=== PATIENT | male | born 1950 | race Caucasian/White ===

== ENCOUNTER 2016-08-11 11:08 | Day surgery (SDC) | payer OTHER ==
[2016-08-10 11:51] VITALS: BMI 21.2
[2016-08-11] MEDS ORDERED: HEPARIN NA (PORCINE) 5,000 UNITS/ML 1ML VIAL ONE ×2 (13:51→14:04)
[2016-08-11] MEDS ORDERED: PROPOFOL 20 ML ONE (13:56)
[2016-08-11] MEDS ORDERED: MIDAZOLAM HCL 2 MG/2 ML SINGLE DOSE VIAL ONE (13:57)
[2016-08-11] MEDS ORDERED: ceFAZolin SODIUM 1 GM VIAL ONE (14:17)
[2016-08-11] MEDS ORDERED: ceFAZolin SODIUM 1 GM VIAL IVPB ONE (14:21)
[2016-08-11] MEDS ORDERED: morphine CARPU-JECT 2 MG/1 ML DISP.SYRIN IVPUSH PRN (14:50)
[2016-08-11] MEDS ORDERED: ONDANSETRON 4 MG/2 ML VIAL IVPUSH PRN (14:50)
[2016-08-11] MEDS ORDERED: oxyCODONE HCL 5 MG TABLET PO PRN (14:50)
--- NOTE | 2016-08-11 14:52 | HP ---
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 Valve is Bovine so only on ASA) Gastrointestinal: Yes: Other (HX OF GI BLEED FRO DUODENAL RECURRENT ARTERY) Renal/: Yes: Renal Inusuff, Other (Copy of the renal bx report from 02/11/14 which showed Moderately advanced Chronic Sclerosing Glomerulonephropathy with mild IgA nephropathy, Severe arterial and arteriolar Sclerosis, and Tubulo- Interstitial scarring.) Heme/Onc: Yes: Anemia, Thrombocytopenia ENT: Yes: Other - Past Surgical History Past Surgical History: Yes: Appendectomy, AV Fistula/Graft, Colonoscopy, Upper Endoscopy - Smoking History Smoking history: Former smoker Have you smoked in the past 12 months: No Aproximately how many cigarettes per day: 0 If you are a former smoker, when did you quit?: 40yrs ago light smoker - Alcohol/Substance Use Hx Alcohol Use: No History of Substance Use: reports: None - Social History ADL: Family Assistance History of Recent Travel: No Home Medications - Allergies Allergies/Adverse Reactions: Allergies Allergy/AdvReac Type Severity Reaction Status Date / Time ibuprofen Allergy Rash Verified 08/11/16 12:48 - Home Medications Home Medications: Ambulatory Orders Aspirin [ASA -] 81 mg PO DAILY 02/06/16 Cholecalciferol (Vitamin D3) [Vitamin D3] 3,000 unit PO HS 02/06/16 Cyanocobalamin [Vitamin B12 -] 500 mg PO HS 02/06/16 Divalproex [Depakote -] 250 mg PO DAILY 02/06/16 Docusate Sodium [Colace -] 100 mg PO DAILY 02/06/16 Doxazosin Mesylate 4 mg PO HS 02/06/16 Escitalopram Oxalate [Lexapro -] 5 mg PO HS 02/06/16 Gabapentin 100 mg PO HS 02/06/16 Levothyroxine [Synthroid -] 25 mcg PO DAILY 02/06/16 Oxybutynin Chloride [Ditropan Xl] 10 mg PO HS 02/06/16 Pantoprazole Sodium [Protonix] 40 mg PO BID 02/06/16 Sevelamer Carbonate [Renvela -] 800 mg PO BID 02/06/16 Solifenacin Succinate [Vesicare -] 5 mg PO HS 02/06/16 Vitamin B Complex 1 each PO HS 02/06/16 Family Disease History - Family Disease History Family Disease History: Diabetes: Mother, Brother (HTN), Other: Brother Physical Examination Vital Signs: Vital Signs Temperature 97.3 F L 08/11/16 12:45 Pulse Rate 50 L 08/11/16 12:45 Respiratory Rate 20 08/11/16 12:45 Blood Pressure 108/52 08/11/16 12:45 O2 Sat by Pulse Oximetry (%) 98 08/11/16 12:38 Constitutional: Yes: Well Nourished Eyes: Yes: WNL HENT: Yes: WNL Neck: Yes: WNL Cardiovascular: Yes: WNL Respiratory: Yes: WNL Gastrointestinal: Yes: WNL Labs: CBC, BMP 08/11/16 11:15 Assessment/Plan Stenosis left avf 1. For venoplasty today.
[2016-08-11] MEDS ORDERED: SODIUM CHLORIDE 1,000 ML IV SCH (15:00)
[2016-08-11 16:22] VITALS: TEMP 98.5
[2016-08-11 17:29] VITALS: BP 102/68; PULSE 48
--- NOTE | 2016-08-12 14:42 | OP ---
DATE OF OPERATION: 08/11/2016 PREOPERATIVE DIAGNOSIS: Stenosis, left arteriovenous fistula. POSTOPERATIVE DIAGNOSIS: Stenosis, left arteriovenous fistula. PROCEDURE: Venogram, venoplasty, left arteriovenous fistula. SURGEON: Cain Maldonado DO ANESTHESIA: Fractional. BLOOD LOSS: 5 mL. The patient is a 65-year-old male who has a stenosis in his left AV fistula on preoperative ultrasound. He had low volume flows on his ultrasound report and does need to have a venogram. Patient came in through ambulatory surgery. The patient was consented for the procedure, understanding all risks, benefits, alternatives. He was then taken to the operating room. Once in the operating room, he was placed on the operating table in supine manner and the area of the left arm was prepped and draped in a sterile surgical manner. We then went ahead and injected 5 mL of lidocaine 1% at the proximal AV fistula. We then took our micropuncture needle and punctured the proximal AV fistula and our micropuncture wire was inserted and our micropuncture sheath was inserted and an additional short 6-[place] sheath was inserted. We then shot a venogram of the left AV fistula via hand injection, showing that the mid AV fistula had probably a 95% stenosis for about 3 cm. We then went ahead and placed a 0.035 floppy guidewire across our stenosis. We then used an 8 x 6 balloon and performed venoplasty of the area. Completion venogram showed that the vein was now patent, there was no recoil and there was good thrill in our AV fistula. At this point, using a 4-0 Biosyn, we placed a [id number] stitch around our sheath and the sheath was pulled. The area was wet and dried and Dermabond was placed. Patient tolerated the procedure, no complication. Patient transferred back in stable condition. CAIN MALDONADO DO BOILER SHOP MECHANIC/[id number]
== END 2016-08-11 17:51 | disposition home or self-care (01) ==
LOC: JASU-SURG 11:08
PROVIDERS: ATTEND Surgery Vascular Surgery
PROC: B51WYZA Fluoroscopy of Dialysis Shunt/Fistula using Other Contrast, Guidance (ICD-10-PCS; 2016-08-11)
PROC: 057Y3ZZ Dilation of Upper Vein, Percutaneous Approach (ICD-10-PCS; principal; 2016-08-11 13:00)
DX: T82.858A Stenosis of other vascular prosthetic devices, implants and grafts, initial encounter (principal)
CPT/HCPCS: 36415; 76000-TC; 84132; 94760; J1644

== ENCOUNTER 2017-02-02 10:26 | Day surgery (SDC) | payer OTHER ==
[2017-02-01 11:58] VITALS: BMI 24.5
[2017-02-02] MEDS ORDERED: HEPARIN NA (PORCINE) 5,000 UNITS/ML 1ML VIAL ONE (12:20)
[2017-02-02] MEDS ORDERED: LIDOCAINE HCL 1%, 10 MG/ML (20ML VIAL) ONE (12:20)
[2017-02-02] MEDS ORDERED: MIDAZOLAM HCL 2 MG/2 ML SINGLE DOSE VIAL ONE ×2 (12:40→12:51)
[2017-02-02] MEDS ORDERED: ceFAZolin SODIUM 1 GM VIAL IVPB ONE (12:49)
[2017-02-02] MEDS ORDERED: ceFAZolin SODIUM 1 GM VIAL ONE (12:49)
[2017-02-02] MEDS ORDERED: LIDOCAINE HCL 1%, 10 MG/ML (20ML VIAL) IJ ONE (12:59)
--- NOTE | 2017-02-02 13:41 | OP ---
Operative Note - Note: Operative Date: 02/02/17 Pre-Operative Diagnosis: Stenosis left avf Operation: venogram, venoplasty left avf Findings: stenosis in body of avf -- 80% Post-Operative Diagnosis: Same as Pre-op Surgeon: Cain Garcia Anesthesia: Fractional Estimated Blood Loss (mls): 20 Operative Report Dictated: Yes
--- NOTE | 2017-02-02 13:41 | HP ---
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 Valve is Bovine so only on ASA) Gastrointestinal: Yes: Other (HX OF GI BLEED FRO DUODENAL RECURRENT ARTERY) Renal/: Yes: Renal Inusuff, Other (Copy of the renal bx report from 02/11/14 which showed Moderately advanced Chronic Sclerosing Glomerulonephropathy with mild IgA nephropathy, Severe arterial and arteriolar Sclerosis, and Tubulo- Interstitial scarring.) Heme/Onc: Yes: Anemia, Thrombocytopenia ENT: Yes: Other - Past Surgical History Past Surgical History: Yes: Appendectomy, AV Fistula/Graft, Colonoscopy, Upper Endoscopy - Smoking History Smoking history: Former smoker Have you smoked in the past 12 months: No Aproximately how many cigarettes per day: 0 If you are a former smoker, when did you quit?: 40yrs ago light smoker - Alcohol/Substance Use Hx Alcohol Use: No History of Substance Use: reports: None - Social History ADL: Family Assistance History of Recent Travel: No Home Medications - Allergies Allergies/Adverse Reactions: Allergies Allergy/AdvReac Type Severity Reaction Status Date / Time No Known Drug Allergies Allergy Verified 02/02/17 11:58 - Home Medications Home Medications: Ambulatory Orders Aspirin [ASA -] 81 mg PO BID 02/06/16 Cholecalciferol (Vitamin D3) [Vitamin D3] 2,000 unit PO HS 02/06/16 Cyanocobalamin [Vitamin B12 -] 500 mg PO HS 02/06/16 Divalproex [Depakote -] 250 mg PO DAILY 02/06/16 Docusate Sodium [Colace -] 100 mg PO BID 02/06/16 Doxazosin Mesylate 4 mg PO HS 02/06/16 Escitalopram Oxalate [Lexapro -] 5 mg PO HS 02/06/16 Gabapentin 100 mg PO HS 02/06/16 Levothyroxine [Synthroid -] 25 mcg PO DAILY 02/06/16 Oxybutynin Chloride [Ditropan Xl] 10 mg PO HS 02/06/16 Pantoprazole Sodium [Protonix] 40 mg PO DAILY 02/06/16 Sevelamer Carbonate [Renvela -] 800 mg PO BIDAC 02/06/16 Vitamin B Complex 1 each PO HS 02/06/16 Calcium Acetate [Phoslo -] 667 mg PO DAILY 02/02/17 Finasteride [Proscar -] 5 mg PO DAILY 02/02/17 Risperidone 0.25 mg PO DAILY 02/02/17 Family Disease History - Family Disease History Family Disease History: Diabetes: Mother, Brother (HTN), Other: Brother Physical Examination Vital Signs: Vital Signs Temperature 97.7 F 02/02/17 11:12 Pulse Rate 46 L 02/02/17 11:12 Respiratory Rate 18 02/02/17 11:12 Blood Pressure 109/65 02/02/17 11:12 O2 Sat by Pulse Oximetry (%) 98 02/02/17 11:14 Constitutional: Yes: Well Nourished Eyes: Yes: WNL HENT: Yes: WNL Neck: Yes: WNL Cardiovascular: Yes: WNL Respiratory: Yes: WNL Gastrointestinal: Yes: WNL Musculoskeletal: Yes: WNL Extremities: Yes: WNL Edema: No Labs: CBC, BMP 02/02/17 11:15 Assessment/Plan Stenosis left avf 1. For venogram , venoplasty today
[2017-02-02 14:59] VITALS: TEMP 97.7
[2017-02-02 17:10] VITALS: BP 109/68; PULSE 48
--- NOTE | 2017-02-03 08:09 | OP ---
DATE OF OPERATION: 02/02/2017 SURGEON: Cain Maldonado DO ANESTHESIA: Fractional. BLOOD LOSS: 20 mL. PREOPERATIVE DIAGNOSIS: Stenosis, left arteriovenous fistula. POSTOPERATIVE DIAGNOSIS: Stenosis, left arteriovenous fistula. PROCEDURE: Venogram, venoplasty, left arteriovenous fistula. The patient is a 66-year-old male that came in from dialysis with issues with blood flow in the left AV fistula. It was decided that he would need a venogram. Patient was consented for the procedure, understanding all risks, benefits, and alternatives, and was then taken to the operating room. Once in the operating room, he was laid on the operating table in the supine manner and the area of the left arm was prepped and draped in sterile surgical manner. Under ultrasound guidance, we visualized the cephalic vein at the antecubital space and 2 mL of lidocaine 1% was injected there. We then took our micropuncture needle and punctured the cephalic vein. Micropuncture wire was inserted. Micropuncture sheath was inserted and a short 6-[place] sheath was inserted. IV heparin 3000 units was administered to the patient. We then placed a 0.045 floppy guidewire down through the vein and through the anastomosis and a [place] catheter was placed. We then shot a venogram via hand injection showing that the proximal cephalic vein above the anastomosis was severely stenotic, about 80%, through the body of the fistula. We then went ahead and placed a 6 x 8 balloon from the anastomosis up and performed venoplasty of the vein. We then followed that up with a 9 x 8 balloon and performed venoplasty of the vein. Completion venogram now showed that the vein was patent. There was a good thrill in our AV fistula. There was a good bruit. At this point, we used a 4-0 Biosyn stitch and a figure-of-8 stitch was placed around our sheath and the sheath was pulled. The area was wet and dried and Dermabond was placed. Patient tolerated the procedure with no complication. Patient transferred to PACU in stable condition. CAIN MALDONADO DO RESPIRATORY EQUIPMENT ASSISTANT/[id number]
--- NOTE | 2017-02-07 10:18 | OP ---
DATE OF OPERATION: 02/02/2017 PREOPERATIVE DIAGNOSIS: Stenosis, left arteriovenous fistula. POSTOPERATIVE DIAGNOSIS: Stenosis, left arteriovenous fistula. PROCEDURE: Venogram, venoplasty, left arteriovenous fistula. SURGEON: Cain Maldonado DO ANESTHESIA: Fractional. BLOOD LOSS: 5 mL. DESCRIPTION OF PROCEDURE: The patient is a 66-year-old who comes in from the dialysis unit with poor flow. It was decided that he would need a venogram. Patient was consented for the procedure, understanding all risks, benefits, and alternatives. He was then taken to the operating room. Once in the operating room, he was laid on the operating table in supine manner, and the area of the left arm was prepped and draped in sterile surgical manner. We then went ahead and punctured the left cephalic vein at the antecubital fossa under ultrasound guidance. Under ultrasound guidance we visualized the cephalic vein. Next, 10 mL of 1% was injected in the area. We then took our Micropuncture needle, punctured the vein. Micropuncture wire was inserted and traditional short 6-[place] sheath was inserted. We then placed a 0.035 floppy guidewire down through the anastomosis, and we then went ahead and used an 8 x 8 [place] balloon and performed venoplasty of the entire AV fistula. Completion venogram now showed that the fistula was patent. There was a good thrill in the aVF. At this point we took a 4-0 Biosyn stitch, and a [id number] stitch was placed around the sheath and the sheath was pulled. Area was wet and dried and Dermabond was placed. The patient tolerated the procedure well with no complications. Patient transferred to PACU in stable condition. CAIN MALDONADO DO EDUCATION AND TRAINING COORDINATOR/[id number]
== END 2017-02-02 17:11 | disposition home or self-care (01) ==
LOC: JASU-SURG 10:26 → JOR 10:26 → JASU-SURG 17:11
PROVIDERS: ATTEND Surgery Vascular Surgery
PROC: 057F3ZZ Dilation of Left Cephalic Vein, Percutaneous Approach (ICD-10-PCS; principal; 2017-02-02 11:30)
DX: T82.858A Stenosis of other vascular prosthetic devices, implants and grafts, initial encounter (principal); I12.0 Hypertensive chronic kidney disease with stage 5 chronic kidney disease or end stage renal disease; N18.6 End stage renal disease; Z99.2 Dependence on renal dialysis
CPT/HCPCS: 36415; 76000-TC; 84132; 94760; J1644

== ENCOUNTER 2017-07-07 06:38 | Day surgery (SDC) | payer OTHER ==
[2017-07-06 12:47] VITALS: BMI 23.8
[2017-07-07] MEDS ORDERED: HEPARIN NA (PORCINE) 5,000 UNITS/ML 1ML VIAL ONE (08:16)
[2017-07-07] MEDS ORDERED: LIDOCAINE HCL 1%, 10 MG/ML (20ML VIAL) ONE (08:16)
[2017-07-07] MEDS ORDERED: MIDAZOLAM HCL 2 MG/2 ML SINGLE DOSE VIAL ONE (09:12)
[2017-07-07] MEDS ORDERED: PROPOFOL 20 ML ONE ×2 (09:27)
[2017-07-07] MEDS ORDERED: LIDOCAINE HCL/PF 2% SDV 5ML VIAL ONE (09:27)
[2017-07-07] MEDS ORDERED: IOHEXOL 300 MG/ML INFUS..BTL IV ONE (09:47)
[2017-07-07] MEDS ORDERED: LIDOCAINE HCL 1%, 10 MG/ML (20ML VIAL) PNB ONE (09:49)
--- NOTE | 2017-07-07 09:51 | HP ---
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 Valve is Bovine so only on ASA) Gastrointestinal: Yes: Other (HX OF GI BLEED FRO DUODENAL RECURRENT ARTERY) Renal/: Yes: Renal Inusuff, Other (Copy of the renal bx report from 02/11/14 which showed Moderately advanced Chronic Sclerosing Glomerulonephropathy with mild IgA nephropathy, Severe arterial and arteriolar Sclerosis, and Tubulo- Interstitial scarring.) Heme/Onc: Yes: Anemia, Thrombocytopenia ENT: Yes: Other - Past Surgical History Past Surgical History: Yes: Appendectomy, AV Fistula/Graft, Colonoscopy, Upper Endoscopy - Smoking History Smoking history: Former smoker Have you smoked in the past 12 months: No Aproximately how many cigarettes per day: 0 If you are a former smoker, when did you quit?: 40yrs ago light smoker - Alcohol/Substance Use Hx Alcohol Use: No History of Substance Use: reports: None - Social History ADL: Family Assistance History of Recent Travel: No Home Medications - Allergies Allergies/Adverse Reactions: Allergies Allergy/AdvReac Type Severity Reaction Status Date / Time No Known Drug Allergies Allergy Verified 07/07/17 07:29 - Home Medications Home Medications: Ambulatory Orders Aspirin [ASA -] 81 mg PO BID 02/06/16 Cholecalciferol (Vitamin D3) [Vitamin D3] 2,000 unit PO HS 02/06/16 Cyanocobalamin [Vitamin B12 -] 500 mg PO HS 02/06/16 Divalproex [Depakote -] 250 mg PO DAILY 02/06/16 Docusate Sodium [Colace -] 100 mg PO BID 02/06/16 Doxazosin Mesylate 4 mg PO DAILY 02/06/16 Escitalopram Oxalate [Lexapro -] 5 mg PO DAILY 02/06/16 Gabapentin 100 mg PO HS 02/06/16 Levothyroxine [Synthroid -] 25 mcg PO DAILY 02/06/16 Oxybutynin Chloride [Ditropan Xl] 20 mg PO DAILY 02/06/16 Pantoprazole Sodium [Protonix] 40 mg PO DAILY 02/06/16 Sevelamer Carbonate [Renvela -] 800 mg PO BIDAC 02/06/16 Calcium Acetate [Phoslo -] 667 mg PO DAILY 02/02/17 Finasteride [Proscar -] 5 mg PO DAILY 02/02/17 Risperidone 0.25 mg PO DAILY 02/02/17 Linaclotide [Linzess] 72 mcg PO DAILY 07/06/17 Vitamin B Complex 1 each PO DAILY 07/06/17 Family Disease History - Family Disease History Family Disease History: Diabetes: Mother, Brother (HTN), Other: Brother Review of Systems - Review of Systems Constitutional: reports: No Symptoms Eyes: reports: No Symptoms HENT: reports: No Symptoms Neck: reports: No Symptoms Cardiovascular: reports: No Symptoms Respiratory: reports: No Symptoms Gastrointestinal: reports: No Symptoms Genitourinary: reports: No Symptoms Integumentary: reports: No Symptoms Neurological: reports: No Symptoms Endocrine: reports: No Symptoms Hematology/Lymphatic: reports: No Symptoms Psychiatric: reports: No Symptoms Physical Examination Vital Signs: Vital Signs Temperature 97.6 F 07/07/17 07:31 Pulse Rate 48 L 07/07/17 07:31 Respiratory Rate 16 07/07/17 07:31 Blood Pressure 118/53 07/07/17 07:31 O2 Sat by Pulse Oximetry (%) 98 07/07/17 07:30 Constitutional: Yes: Well Nourished, No Distress, Calm Eyes: Yes: WNL, Conjunctiva Clear, EOM Intact HENT: Yes: WNL, Atraumatic, Normocephalic Neck: Yes: WNL, Supple, Trachea Midline Cardiovascular: Yes: WNL, Regular Rate and Rhythm Respiratory: Yes: WNL, Regular, CTA Bilaterally Gastrointestinal: Yes: WNL, Normal Bowel Sounds Musculoskeletal: Yes: WNL Extremities: Yes: WNL Edema: No Integumentary: Yes: WNL Neurological: Yes: WNL, Alert, Oriented ...Motor Strength: WNL Psychiatric: Yes: WNL Labs: CBC, BMP 07/07/17 06:45 Problem List - Problems (1) AV fistula occlusion Code(s): T82.898A - OTH COMPLICATION OF VASCULAR PROSTH DEV/GRFT, INIT (2) CKD (chronic kidney disease) Code(s): N18.9 - CHRONIC KIDNEY DISEASE, UNSPECIFIED Assessment/Plan Left avf stenosis 1. for venogram , venoplasty today
--- NOTE | 2017-07-07 09:53 | OP ---
Operative Note - Note: Operative Date: 07/07/17 Pre-Operative Diagnosis: left avf stenosis Operation: Venogram, DCB venoplasty of left avf Findings: 90% stenosis of left avf -- body Post-Operative Diagnosis: Same as Pre-op Surgeon: Cain Garcia Anesthesia: Fractional Estimated Blood Loss (mls): 10 Operative Report Dictated: Yes
--- NOTE | 2017-07-07 10:31 | OP ---
DATE OF OPERATION: 07/07/2017 PREOPERATIVE DIAGNOSIS: Stenosis, left arteriovenous fistula. POSTOPERATIVE DIAGNOSIS: Stenosis, left arteriovenous fistula. PROCEDURE: Venogram, drug-coated balloon venoplasty of left arteriorvenous fistula. SURGEON: Cain Maldonado MD ANESTHESIA: Fractional. BLOOD LOSS: 10 mL. INDICATIONS: The patient is a 62-year-old male who had an ultrasound done in our office yesterday showing that his volume had fallen all the way down to 200. He had a 90% stenosis in the body of his AV fistula, and he was going to dialysis the next day. It was thought that in the morning, we should do a venoplasty, so, he can get adequate dialysis. Patient came into ambulatory surgery. Patient was consented for the procedure understanding all risks, benefits, and alternatives, and then taken to the operating room. DESCRIPTION OF PROCEDURE: Once in the operating room, he was placed on the operating table in the supine manner, and the area of the left arm was prepped and draped in a sterile surgical manner. Under ultrasound guidance we visualized the AV fistula at the antecubital fossa, and we were able to inject 10 mL of lidocaine 1% in that area. We then used our micropuncture needle and punctured the AV fistula. Micropuncture wire was inserted, micropuncture sheath was inserted, and a traditional short 6-[place] sheath was inserted. Then, 3000 units of IV heparin were administered to the patient. We then placed a 0.035-floppy guidewire down to the anastomosis and across it. We then shot a venogram showing that the body of the AV fistula had a 90% stenosis. At this point, we placed a 7 x 6 drug-coated balloon down to the anastomosis and performed a venoplasty using the drug-coated [place]on[place] balloon in the body of the AV fistula. We kept the balloon open for 3 minutes, so that the medication could get into the wall of the vein. We then went ahead and used a 9 x 8 [place] balloon and performed venoplasty of the entire AV fistula, again dilating up the vein with completion venogram now shot through the sheath showing that the vein was patent, there was good thrill in the AV fistula. At this point, we used a 4-0 Biosyn stitch, and a figure-of-8 stitch was placed around the sheath, and the sheath was pulled. Area was wet and dried, and Dermabond was placed. The patient tolerated the procedure with no complications. Patient transferred to PACU in stable condition. CAIN MALDONADO DO NP/[id number]
[2017-07-07] MEDS ORDERED: ONDANSETRON 4 MG/2 ML VIAL IVPUSH PRN (10:48)
[2017-07-07 11:12] VITALS: TEMP 97.5
[2017-07-07 12:32] VITALS: BP 134/56; PULSE 50
--- NOTE | 2017-07-08 15:16 | EKG ---
Test Reason : Blood Pressure : / mmHG Vent. Rate : 045 BPM Atrial Rate : 045 BPM P-R Int : 158 ms QRS Dur : 100 ms QT Int : 528 ms P-R-T Axes : -19 047 058 degrees QTc Int : 456 ms MARKED SINUS BRADYCARDIA NONSPECIFIC T WAVE ABNORMALITY ABNORMAL ECG WHEN COMPARED WITH ECG OF 22-APR-2016 00:18, T WAVE INVERSION NOW EVIDENT IN ANTERIOR LEADS Confirmed by FRANCISCO MONTALVO MD ([id number]) on 07/08/2017 3:16:13 PM Referred By: PATRICIA MALDONADO Confirmed By:FRANCISCO MONTALVO MD
== END 2017-07-07 12:00 | disposition home or self-care (01) ==
LOC: JASU-SURG 06:38
PROVIDERS: ATTEND Surgery Vascular Surgery
PROC: 057Y3DZ Dilation of Upper Vein with Intraluminal Device, Percutaneous Approach (ICD-10-PCS; 2017-07-07)
PROC: 057F3ZZ Dilation of Left Cephalic Vein, Percutaneous Approach (ICD-10-PCS; 2017-07-07)
PROC: 057Y3ZZ Dilation of Upper Vein, Percutaneous Approach (ICD-10-PCS; principal; 2017-07-07 09:00)
DX: T82.858A Stenosis of other vascular prosthetic devices, implants and grafts, initial encounter (principal); I12.0 Hypertensive chronic kidney disease with stage 5 chronic kidney disease or end stage renal disease; N18.6 End stage renal disease; E78.5 Hyperlipidemia, unspecified; Z86.73 Personal history of transient ischemic attack (TIA), and cerebral infarction without residual deficits; Z87.891 Personal history of nicotine dependence
CPT/HCPCS: 36415; 76000-TC; 84132; 93005; 93010; 94760; J1644

== ENCOUNTER 2018-12-15 08:33 | Day surgery (SDC) | payer OTHER, MEDICARE ==
[2018-12-14 15:46] VITALS: BMI 21.2
[2018-12-15] MEDS ORDERED: LIDOCAINE HCL/PF 2% SDV 5ML VIAL ONE (09:51)
[2018-12-15] MEDS ORDERED: ceFAZolin SODIUM 1 GM VIAL ONE (09:51)
[2018-12-15] MEDS ORDERED: DEXAMETHASONE SOD PHOSPHATE 4 MG/1 ML VIAL ONE (09:51)
[2018-12-15] MEDS ORDERED: SODIUM CHLORIDE 0.9% P/F 10 ML VIAL IJ ONE (09:51)
[2018-12-15] MEDS ORDERED: MIDAZOLAM HCL 2 MG/2 ML SINGLE DOSE VIAL ONE (09:51)
[2018-12-15] MEDS ORDERED: ceFAZolin SODIUM 1 GM VIAL IVPB ONE (10:40)
[2018-12-15] MEDS ORDERED: LIDOCAINE HCL 1%, 10 MG/ML (50 mL VIAL) IJ ONE ×2 (10:49)
[2018-12-15] MEDS ORDERED: oxyCODONE HCL 5 MG TABLET PO PRN (11:05)
[2018-12-15] MEDS ORDERED: ONDANSETRON 4 MG/2 ML VIAL IVPUSH PRN (11:05)
--- NOTE | 2018-12-15 11:06 | HP ---
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 Valve is Bovine so only on ASA) Gastrointestinal: Yes: Other (HX OF GI BLEED FRO DUODENAL RECURRENT ARTERY) Renal/: Yes: Renal Inusuff, Other (Copy of the renal bx report from 02/11/14 which showed Moderately advanced Chronic Sclerosing Glomerulonephropathy with mild IgA nephropathy, Severe arterial and arteriolar Sclerosis, and Tubulo- Interstitial scarring.) Heme/Onc: Yes: Anemia, Thrombocytopenia ENT: Yes: Other - Past Surgical History Past Surgical History: Yes: Appendectomy, AV Fistula/Graft, Colonoscopy, Upper Endoscopy - Smoking History Smoking history: Former smoker Have you smoked in the past 12 months: No Aproximately how many cigarettes per day: 0 If you are a former smoker, when did you quit?: 40yrs ago light smoker - Alcohol/Substance Use Hx Alcohol Use: No History of Substance Use: reports: None - Social History ADL: Family Assistance History of Recent Travel: No Home Medications - Allergies Allergies/Adverse Reactions: Allergies Allergy/AdvReac Type Severity Reaction Status Date / Time No Known Allergies Allergy Verified 12/15/18 09:18 - Home Medications Home Medications: Ambulatory Orders Escitalopram Oxalate [Lexapro -] 10 mg PO DAILY 02/06/16 Finasteride [Proscar -] 5 mg PO DAILY 02/02/17 Linaclotide [Linzess] 72 mcg PO DAILY 07/06/17 Vitamin B Complex 1 each PO DAILY 07/06/17 Cyanocobalamin [Vitamin B12 -] 500 mcg PO DAILY 01/31/18 Sevelamer HCl [Renagel] 800 mg PO TID 02/02/18 Aspirin [Aspirin EC] 81 mg PO DAILY 12/15/18 Cholecalciferol (Vitamin D3) [Vitamin D3 -] 1,000 unit PO DAILY 12/15/18 Diazepam [Valium] 2 mg PO HS 12/15/18 Divalproex [Depakote -] 250 mg PO DAILY 12/15/18 Docusate Sodium [Colace -] 100 mg PO BID 12/15/18 Nifedipine [Procardia Xl] 60 mg PO ASDIR 12/15/18 Pantoprazole Sodium [Protonix -] 40 mg PO DAILY 12/15/18 Pramipexole Di-HCl [Mirapex] 0.25 mg PO DAILY 12/15/18 Family Disease History - Family Disease History Family Disease History: Diabetes: Mother, Brother (HTN), Other: Brother Review of Systems - Review of Systems Constitutional: reports: No Symptoms Eyes: reports: No Symptoms HENT: reports: No Symptoms Neck: reports: No Symptoms Cardiovascular: reports: No Symptoms Respiratory: reports: No Symptoms Gastrointestinal: reports: No Symptoms Genitourinary: reports: No Symptoms Musculoskeletal: reports: No Symptoms Integumentary: reports: No Symptoms Neurological: reports: No Symptoms Endocrine: reports: No Symptoms Hematology/Lymphatic: reports: No Symptoms Psychiatric: reports: No Symptoms Physical Examination Vital Signs: Vital Signs Temperature 97.6 F 12/15/18 09:17 Pulse Rate 46 L 12/15/18 09:17 Respiratory Rate 18 12/15/18 09:17 Blood Pressure 135/56 L 12/15/18 09:17 O2 Sat by Pulse Oximetry (%) 99 12/15/18 09:17 Constitutional: Yes: Well Nourished, No Distress, Calm Eyes: Yes: WNL, Conjunctiva Clear, EOM Intact HENT: Yes: WNL, Atraumatic, Normocephalic Neck: Yes: WNL, Supple, Trachea Midline Cardiovascular: Yes: WNL, Regular Rate and Rhythm Respiratory: Yes: WNL, Regular, CTA Bilaterally Gastrointestinal: Yes: WNL, Normal Bowel Sounds Musculoskeletal: Yes: WNL Extremities: Yes: WNL Edema: No Peripheral Pulses WNL: Yes Integumentary: Yes: WNL Neurological: Yes: WNL, Alert, Oriented ...Motor Strength: WNL Psychiatric: Yes: WNL Labs: CBC, BMP 12/15/18 08:57 Problem List - Problems (1) AV fistula stenosis Assessment/Plan: for venogram today Code(s): T82.858A - STENOSIS OF OTHER VASCULAR PROSTH DEV/GRFT, INIT
--- NOTE | 2018-12-15 11:09 | OP ---
Operative Note - Note: Operative Date: 12/15/18 Pre-Operative Diagnosis: stenosis left avf Operation: venogram,venoplasty left avf Post-Operative Diagnosis: Same as Pre-op Surgeon: Cain Garcia Anesthesia: Fractional Estimated Blood Loss (mls): 20 Operative Report Dictated: Yes
[2018-12-15] MEDS ORDERED: LACTATED RINGERS SOLUTION 1,000 ML IV SCH (11:15)
--- NOTE | 2018-12-15 11:51 | OP ---
DATE OF OPERATION: 12/15/2018 PREOPERATIVE DIAGNOSIS: Stenosis left arteriovenous fistula. POSTOPERATIVE DIAGNOSIS: Stenosis left arteriovenous fistula. PROCEDURE: Venogram and venoplasty of left arteriovenous fistula. SURGEON: Cain Maldonado DO ANESTHESIA: Fractional. BLOOD LOSS: 30 mL. Patient is a 68-year-old male that has had a recent ultrasound showing stenosis of left AV fistula with a low volume flow. It was felt that he would need a venogram. Patient was consented for the procedure understanding all risks, benefits, and alternatives, was then taken to the operating room. Once in the operating room, was laid on the operating table in supine manner. The area of the left arm was prepped and draped in standard surgical manner. We then went ahead and under ultrasound guidance visualized the proximal cephalic vein below the elbow and 5 mL of lidocaine 1% was injected. We then, under ultrasound guidance, were able to use our micropuncture needle and puncture the cephalic vein. Micropuncture wire was inserted, micropuncture sheath was inserted, and short 6-Sinhala sheath was inserted. Intravenous heparin 5000 units was administered to the patient. We then placed a 0.035 floppy guidewire down to the anastomosis. We then placed an 8 x 8 Deuel balloon and performed venoplasty of the entire fistula from above the anastomosis to below the elbow. Once completed, we shot a completion venogram via hand injection showing that the vein was patent and was dilated. There was a good thrill in the AV fistula. At this point, we used a 4-0 Biosyn stitch in a [id number] stitch was placed around our sheath, and the sheath was pulled. The areas were then dried, and Dermabond was placed. Patient tolerated the procedure with no complications. Patient was transferred to PACU in stable condition. CAIN MALDONADO DO MANAGER ATHLETICS/[id number]
[2018-12-15 14:06] VITALS: BP 138/60; PULSE 52; TEMP 97.8
== END 2018-12-15 14:05 | disposition home or self-care (01) ==
LOC: JASU-SURG 08:33
PROVIDERS: ATTEND Surgery Vascular Surgery
PROC: 057F3DZ Dilation of Left Cephalic Vein with Intraluminal Device, Percutaneous Approach (ICD-10-PCS; principal; 2018-12-15 10:00)
DX: T82.858A Stenosis of other vascular prosthetic devices, implants and grafts, initial encounter (principal); I12.0 Hypertensive chronic kidney disease with stage 5 chronic kidney disease or end stage renal disease; N18.6 End stage renal disease; Z99.2 Dependence on renal dialysis
CPT/HCPCS: 36415; 76000-TC-FY; 84132; 94760

== ENCOUNTER 2019-02-01 06:35 | Inpatient (IN) | payer OTHER, MEDICARE ==
[2019-02-01 07:20] LABS: HEMATOCRIT 17.9 % (35.4-49); MCH 35.2 pg (25.7-33.7); MCHC 36.9 g/dl (32.0-35.9); MEAN CELL VOLUME 95.4 fl (80-96); MEAN PLT VOLUME 8.1 fl (7.5-11.1); PLATELET COUNT 105 K/MM3 (134-434); RBC 1.87 M/mm3 (4.00-5.60); RDW 14.4 % (11.9-15.9); WHITE BLOOD COUNT 3.2 K/mm3 (4.0-10.0)
[2019-02-01 07:33] LABS: HEMOGLOBIN 6.6 GM/dL (11.7-16.9)
[2019-02-01 11:06] VITALS: BMI 24.1
[2019-02-01] MEDS ORDERED: DEXTROSE 50%-WATER - 25 GM/50 ML VIAL IVPUSH ONE (11:23)
[2019-02-01] MEDS ORDERED: INSULIN (NOVOLOG) ASPART 100 UNITS/ML 10ML VIAL SQ ONE (11:24)
[2019-02-01] MEDS ORDERED: SODIUM POLYSTYRENE SULFONATE 15 GM/60 ML BOTTLE PO ONE (11:26)
[2019-02-01] MEDS ORDERED: ALBUTEROL SO4 0.083% IH SOL 2.5 MG/3 ML VIAL.NEB. NEB ONE ×4 (11:27→12:11)
[2019-02-01] MEDS ORDERED: CALCIUM GLUCONATE 10% - 1,000 MG/10 ML VIAL IVPB ONE (11:30)
[2019-02-01] MEDS ORDERED: SODIUM CHLORIDE 250 ML IV PRN (11:32)
[2019-02-01] MEDS ORDERED: SODIUM BICARBONATE 4.2% 5 MEQ/10 ML DISP.SYRIN IVPUSH ONE (11:35)
--- NOTE | 2019-02-01 11:50 | HP ---
Admitting History and Physical - Primary Care Physician PCP: Leobardo De La Garza I - Admission History of Present Illness: 68 yr old male HTN,HLD, Aortic valve replacement, parkinson disease and ESRD on HD came in because melanotic stools since tuesday, per daughter he has been having dark stools daily since tuesday , she took him to see PMD tuesday and who did blood work and told him to come to dr you for EGD, patient has been feeling dizzy as well since tuesday and was told he looks yellow, he also had a fall at home and has been feeling weak, his knees gave way and was caught by his daughter .last melanotic stool was yesterday evening per daughter no chest pain no dizziness , no sob , no palpitations patient gets HD T and tuesday at [facility] today lab show potssium of 10 and h/h 6.9 History Source: Patient, Family Member - Past Medical History 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 Valve is Bovine so only on ASA) Gastrointestinal: Yes: Other (HX OF GI BLEED FRO DUODENAL RECURRENT ARTERY) Renal/: Yes: Renal Inusuff, Other (Copy of the renal bx report from 02/11/14 which showed Moderately advanced Chronic Sclerosing Glomerulonephropathy with mild IgA nephropathy, Severe arterial and arteriolar Sclerosis, and Tubulo- Interstitial scarring.) Heme/Onc: Yes: Anemia, Thrombocytopenia ENT: Yes: Other - Past Surgical History Past Surgical History: Yes: Appendectomy, AV Fistula/Graft, Colonoscopy, Upper Endoscopy - Smoking History Smoking history: Former smoker Have you smoked in the past 12 months: No Aproximately how many cigarettes per day: 0 If you are a former smoker, when did you quit?: 40yrs ago light smoker - Alcohol/Substance Use Hx Alcohol Use: No History of Substance Use: reports: None - Social History ADL: Family Assistance History of Recent Travel: No Home Medications - Allergies Allergies/Adverse Reactions: Allergies Allergy/AdvReac Type Severity Reaction Status Date / Time No Known Allergies Allergy Verified 12/15/18 09:18 - Home Medications Home Medications: Ambulatory Orders Escitalopram Oxalate [Lexapro -] 10 mg PO DAILY 02/06/16 Finasteride [Proscar -] 5 mg PO DAILY 02/02/17 Linaclotide [Linzess] 72 mcg PO DAILY 07/06/17 Vitamin B Complex 1 each PO DAILY 07/06/17 Cyanocobalamin [Vitamin B12 -] 500 mcg PO DAILY 01/31/18 Sevelamer HCl [Renagel] 800 mg PO BID 02/02/18 Aspirin [Aspirin EC] 81 mg PO DAILY 12/15/18 Cholecalciferol (Vitamin D3) [Vitamin D3 -] 1,000 unit PO DAILY 12/15/18 Diazepam [Valium] 2 mg PO HS 12/15/18 Divalproex [Depakote -] 250 mg PO DAILY 12/15/18 Docusate Sodium [Colace -] 100 mg PO BID 12/15/18 Nifedipine [Procardia Xl] 60 mg PO ASDIR 12/15/18 Pantoprazole Sodium [Protonix -] 40 mg PO DAILY 12/15/18 Pramipexole Di-HCl [Mirapex] 0.25 mg PO DAILY 12/15/18 Family Disease History - Family Disease History Family Disease History: Diabetes: Mother, Brother (HTN), Other: Brother Review of Systems - Review of Systems Constitutional: reports: Weakness Physical Examination Vital Signs: Vital Signs Temperature 98.1 F 02/01/19 08:24 Pulse Rate 51 L 02/01/19 08:24 Respiratory Rate 20 02/01/19 08:24 Blood Pressure 125/51 L 02/01/19 08:24 O2 Sat by Pulse Oximetry (%) 100 02/01/19 08:24 Constitutional: Yes: Calm, Thin HENT: Yes: Other (midline chest scar) Cardiovascular: Yes: Regular Rate and Rhythm, S1, S2 Respiratory: Yes: CTA Bilaterally Gastrointestinal: Yes: Normal Bowel Sounds, Soft Extremities: Yes: Other (left arm av fistula) Edema: No Neurological: Yes: Alert, Oriented Labs: CBC, BMP 02/01/19 06:44 02/01/19 08:25 Imaging - Results EKG: Pending Problem List - Problems (1) GIB (gastrointestinal bleeding) Assessment/Plan: gi dr you on board iv PPI drip clear liquid diet per GI NPO tonight for EGD in AM 3 units PRBC today icu consulted cbc every 8 hrs no aspirin Code(s): K92.2 - GASTROINTESTINAL HEMORRHAGE, UNSPECIFIED (2) Weakness Assessment/Plan: related to anemia Code(s): R53.1 - WEAKNESS (3) Hyperkalemia Assessment/Plan: calcum,insulin,d50, sodium bicarbonate HD once telemetry bed is available stat ekg now cardiology consult repeat cmp now Code(s): E87.5 - HYPERKALEMIA (4) ESRD (end stage renal disease) Assessment/Plan: HD today once bed is available 3 units PRBC Code(s): N18.6 - END STAGE RENAL DISEASE
[2019-02-01] MEDS ORDERED: SODIUM BICARBONATE 8.4% 50 MEQ/50 ML VIAL IV ONE (12:02)
--- NOTE | 2019-02-01 12:29 | CON.GI ---
Consult Consult Specialty:: GI Referred by:: Dr De La Garza/ Jennifer Herrera md - History of Present Illness History of Present Illness: 68 yr old male HTN,HLD, Aortic valve replacement, parkinson disease and ESRD on HD came in because melanotic stools since tuesday, per daughter he has been having dark stools daily since tuesday , she took him to see PMD tuesday and who did blood work and told him to come to dr you for EGD, patient has been feeling dizzy as well since tuesday and was told he looks yellow, he also had a fall at home and has been feeling weak, his knees gave way and was caught by his daughter .last melanotic stool was yesterday evening per daughter no chest pain no dizziness , no sob , no palpitations patient gets HD T and t[facility] today lab show potssium of 10 and h/h 6.9 He was in the endoscopy suite this morning but had to be cancelled because of severe hyperkalemia and severe anemia. He had an endocopy 10/28/[address] Sandoval which revealed bleeding AVM/Dieulafoy's lesion s/p clipping. Since 2014 , he had multiple colonoscopy and EGD secondary to obscure Gi Bleeding. 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 Valve is Bovine so only on ASA) Gastrointestinal: Yes: Other (HX OF GI BLEED FRO DUODENAL RECURRENT ARTERY) Renal/: Yes: Renal Inusuff, Other (Copy of the renal bx report from 02/11/14 which showed Moderately advanced Chronic Sclerosing Glomerulonephropathy with mild IgA nephropathy, Severe arterial and arteriolar Sclerosis, and Tubulo- Interstitial scarring.) ENT: Yes: Other - Past Surgical History Past Surgical History: Yes: Appendectomy, AV Fistula/Graft, Colonoscopy, Upper Endoscopy - Alcohol/Substance Use Hx Alcohol Use: No History of Substance Use: reports: None - Smoking History Smoking history: Former smoker Have you smoked in the past 12 months: No Aproximately how many cigarettes per day: 0 If you are a former smoker, when did you quit?: 40yrs ago light smoker - Social History Usual Living Arrangement: With Spouse ADL: Family Assistance History of Recent Travel: No Home Medications - Allergies Allergies/Adverse Reactions: Allergies Allergy/AdvReac Type Severity Reaction Status Date / Time No Known Allergies Allergy Verified 12/15/18 09:18 - Home Medications Home Medications: Ambulatory Orders Escitalopram Oxalate [Lexapro -] 10 mg PO DAILY 02/06/16 Finasteride [Proscar -] 5 mg PO DAILY 02/02/17 Linaclotide [Linzess] 72 mcg PO DAILY 07/06/17 Vitamin B Complex 1 each PO DAILY 07/06/17 Cyanocobalamin [Vitamin B12 -] 500 mcg PO DAILY 01/31/18 Sevelamer HCl [Renagel] 800 mg PO BID 02/02/18 Aspirin [Aspirin EC] 81 mg PO DAILY 12/15/18 Cholecalciferol (Vitamin D3) [Vitamin D3 -] 1,000 unit PO DAILY 12/15/18 Diazepam [Valium] 2 mg PO HS 12/15/18 Divalproex [Depakote -] 250 mg PO DAILY 12/15/18 Docusate Sodium [Colace -] 100 mg PO BID 12/15/18 Nifedipine [Procardia Xl] 60 mg PO ASDIR 12/15/18 Pantoprazole Sodium [Protonix -] 40 mg PO DAILY 12/15/18 Pramipexole Di-HCl [Mirapex] 0.25 mg PO DAILY 12/15/18 Family Disease History - Family Disease History Family Disease History: Diabetes: Mother, Brother (HTN), Other: Brother Physical Exam-GI Vital Signs: Vital Signs Temperature 98.1 F 02/01/19 08:24 Pulse Rate 51 L 02/01/19 08:24 Respiratory Rate 20 02/01/19 08:24 Blood Pressure 125/51 L 02/01/19 08:24 O2 Sat by Pulse Oximetry (%) 100 02/01/19 08:24 Constitutional: Yes: Well Nourished Eyes: Yes: Conjunctiva Clear HENT: Yes: Atraumatic Neck: Yes: Supple Cardiovascular: Yes: Regular Rate and Rhythm Respiratory: Yes: CTA Bilaterally ...Palpate: Yes: Soft. No: Firm/Rigid, Guarding, Hepatomegaly, Mass, Pulsatile Mass, Splenomegaly, Tenderness Labs: CBC, BMP 02/01/19 06:44 02/01/19 08:25 Problem List - Problems (1) GI bleeding Assessment/Plan: R> for EGD in am once medically cleared IV Protonix, D/w with Frederic and Dr Rodriguez Code(s): K92.2 - GASTROINTESTINAL HEMORRHAGE, UNSPECIFIED
--- NOTE | 2019-02-01 13:59 | EKG ---
Test Reason : Blood Pressure : / mmHG Vent. Rate : 062 BPM Atrial Rate : 062 BPM P-R Int : 148 ms QRS Dur : 100 ms QT Int : 624 ms P-R-T Axes : 049 059 075 degrees QTc Int : 633 ms NORMAL SINUS RHYTHM NONSPECIFIC ST AND T WAVE ABNORMALITY PROLONGED QT ABNORMAL ECG WHEN COMPARED WITH ECG OF 07-JUL-2017 06:42, ST NOW DEPRESSED IN ANTERIOR LEADS NONSPECIFIC T WAVE ABNORMALITY HAS REPLACED INVERTED T WAVES IN ANTERIOR LEADS NONSPECIFIC T WAVE ABNORMALITY NOW EVIDENT IN LATERAL LEADS QT HAS LENGTHENED Confirmed by DOUG MON, NATALIIA ([id number]) on 02/01/2019 1:59:12 PM Referred By: Confirmed By:NATALIIA CAMACHO MD
--- NOTE | 2019-02-01 14:45 | CONSULT ---
Consult Consult Specialty:: Nephrology Reason for Consultation:: ESRD - History of Present Illness Chief Complaint: hyperkalemia History of Present Illness: Pt is a 68 year old male with pmhx of esrd, htn, hld, aortic valve replacement, and parkinsons who presents for endoscopy. He was found to have a pre procedure potassium of 10. I was called to evaluate pt. He last went to HD yesterday. He denies chest pain or palpitations. He complains of black stools. He denies fevers or chills. He says that he is compliant with diet. He gets 3 and a half hours of HD as outpt. 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 Valve is Bovine so only on ASA) Gastrointestinal: Yes: Other (HX OF GI BLEED FRO DUODENAL RECURRENT ARTERY) Renal/: Yes: Renal Failure, Renal Inusuff, Hemodialysis, Other (Copy of the renal bx report from 02/11/14 which showed Moderately advanced Chronic Sclerosing Glomerulonephropathy with mild IgA nephropathy, Severe arterial and arteriolar Sclerosis, and Tubulo-Interstitial scarring.) Heme/Onc: Yes: Anemia ENT: Yes: Other - Past Surgical History Past Surgical History: Yes: Appendectomy, AV Fistula/Graft, Colonoscopy, Upper Endoscopy - Alcohol/Substance Use Hx Alcohol Use: No History of Substance Use: reports: None - Smoking History Smoking history: Former smoker Have you smoked in the past 12 months: No Aproximately how many cigarettes per day: 0 If you are a former smoker, when did you quit?: 40yrs ago light smoker - Social History Usual Living Arrangement: With Spouse ADL: Family Assistance History of Recent Travel: No Home Medications - Allergies Allergies/Adverse Reactions: Allergies Allergy/AdvReac Type Severity Reaction Status Date / Time No Known Allergies Allergy Verified 12/15/18 09:18 - Home Medications Home Medications: Ambulatory Orders Escitalopram Oxalate [Lexapro -] 10 mg PO DAILY 02/06/16 Finasteride [Proscar -] 5 mg PO DAILY 02/02/17 Linaclotide [Linzess] 72 mcg PO DAILY 07/06/17 Vitamin B Complex 1 each PO DAILY 07/06/17 Cyanocobalamin [Vitamin B12 -] 500 mcg PO DAILY 01/31/18 Sevelamer HCl [Renagel] 800 mg PO BID 02/02/18 Aspirin [Aspirin EC] 81 mg PO DAILY 12/15/18 Cholecalciferol (Vitamin D3) [Vitamin D3 -] 1,000 unit PO DAILY 12/15/18 Diazepam [Valium] 2 mg PO HS 12/15/18 Divalproex [Depakote -] 250 mg PO DAILY 12/15/18 Docusate Sodium [Colace -] 100 mg PO BID 12/15/18 Nifedipine [Procardia Xl] 60 mg PO ASDIR 12/15/18 Pantoprazole Sodium [Protonix -] 40 mg PO DAILY 12/15/18 Pramipexole Di-HCl [Mirapex] 0.25 mg PO DAILY 12/15/18 Family Disease History - Family Disease History Family Disease History: Diabetes: Mother, Brother (HTN), Other: Brother Review of Systems - Review of Systems Constitutional: reports: No Symptoms Eyes: reports: No Symptoms HENT: reports: No Symptoms Neck: reports: No Symptoms Cardiovascular: reports: No Symptoms Respiratory: reports: No Symptoms Gastrointestinal: reports: Melena Genitourinary: reports: No Symptoms Musculoskeletal: reports: No Symptoms Integumentary: reports: No Symptoms Neurological: reports: No Symptoms Endocrine: reports: No Symptoms Hematology/Lymphatic: reports: No Symptoms Psychiatric: reports: No Symptoms Physical Exam Vital Signs: Vital Signs Temperature 98.1 F 02/01/19 08:24 Pulse Rate 51 L 02/01/19 08:24 Respiratory Rate 20 02/01/19 08:24 Blood Pressure 125/51 L 02/01/19 08:24 O2 Sat by Pulse Oximetry (%) 100 02/01/19 08:24 Constitutional: Yes: Calm Eyes: Yes: Conjunctiva Clear HENT: Yes: Atraumatic Cardiovascular: Yes: S1, S2 Respiratory: Yes: CTA Bilaterally Gastrointestinal: Yes: Soft Renal/: Yes: WNL Musculoskeletal: Yes: WNL Extremities: Yes: Other (fistula with thrill and bruit) Edema: No Integumentary: Yes: WNL Neurological: Yes: Oriented Psychiatric: Yes: Oriented Labs: CBC, BMP 02/01/19 06:44 02/01/19 08:25 Laboratory Tests 08/01/19 08/01/19 06:44 08:25 WBC 3.2 L Hgb 6.6 L* Potassium > 10.0 H* Problem List - Problems (1) GI bleeding Code(s): K92.2 - GASTROINTESTINAL HEMORRHAGE, UNSPECIFIED (2) Hyperkalemia Code(s): E87.5 - HYPERKALEMIA (3) ESRD (end stage renal disease) Code(s): N18.6 - END STAGE RENAL DISEASE Assessment/Plan Current Medications Generic Name Dose Route Start Last Admin Trade Name Freq PRN Reason Stop Dose Admin Escitalopram Oxalate 10 mg 02/02/19 10:00 Lexapro - PO DAILY ESTRELLA Pantoprazole Sodium 80 mg/ 100 mls @ 10 mls/hr 02/01/19 11:30 Sodium Chloride IVPB Q10H ESTRELLA 8 MG/HR Sodium Chloride 250 mls @ 3,000 mls/hr 02/01/19 11:32 Normal Saline - IV 02/02/19 11:33 PRN PRN Hypotension during Dialysis Pramipexole Dihydrochloride 0.25 mg 02/01/19 22:00 Mirapex - PO HS ESTRELLA Valproate Sodium 250 mg 02/02/19 08:00 Depakene - PO DAILY@0800 ESTRELLA Impression 1. ESRD 2. Gi bleed 3. anemia 4. thrombocytopenia 5. HTN 6. bovine AVR 7. hyperkalemia Plan - started urgent bedside HD - pt admitted to tele - repeat labs - check potassium after HD - renal diet once eating - GI follow up - prbc with HD - discussed with family
--- NOTE | 2019-02-01 15:09 | CONSULT ---
Consultation: CONSULT SERVICE: ICU Resident HISTORY OF PRESENT ILLNESS: 68yo M with h/o of bovine Aortic valve replacement 2/ to endocarditis, HTN, HLD, ESRD on HD, Parkinson's disease who presents today for EGD/colonoscopy due to suspected duodenal bleed. Pt was seen to have black tarry stools x2 days without any jarret blood. Pt had prior duodenal ulcer bleeds which has been recurrent as reported by family. Pt and family at bedside report the EGD/ colonoscopy was postponed due to pre-procedure labs showing a potassium level of >10. STAT EKG was performed with showed an elongated QTc at 600ms, however pt just had general weakness at the time. Pt was given Calcium gluconate x1 and then was consulted for emergent dialysis. Currently pt has no complaints and denies any lightheadedness/dizziness, general malaise, weakness, shortness of breath, cough, abdominal pain, cramping , palpitations, chest pain/discomfort, extremity edema. Pt reports he went to his regular scheduled dialysis which he received through his L AVF without any complications. Pt has been on ASA 81mg qdaily due to his AV replacement. REVIEW OF SYSTEMS: As per HPI PHYSICAL EXAMINATION Vital Signs - 24 hr 02/01/19 02/01/19 02/01/19 08:24 14:05 14:10 Temperature 98.1 F 98.7 F Pulse Rate 51 L 61 58 L Respiratory 20 18 18 Rate Blood Pressure 125/51 L 136/58 L 139/57 L O2 Sat by Pulse 100 Oximetry (%) 02/01/19 14:40 Temperature 98.1 F Pulse Rate 60 Respiratory 18 Rate Blood Pressure 140/60 O2 Sat by Pulse Oximetry (%) GENERAL: Awake, alert, and fully oriented, in no acute distress. HEENT: Nc/AT, EOMI, IGGY, slight conjunctival pallor aprpeciated, sclera anicteric, MMM NECK: No JVD appreciated LUNGS: CTA bilaterally. No wheezes, and no crackles. No accessory muscle use. HEART: RRR, normal S1 and S2 with noted RUSB biologic AV sounds. No other murmurs appreciated ABDOMEN: Soft, NT/ND, normoactive bowel sounds, no guarding, no caput medusa, no jaundice noted EXTREMITIES: LUExt with dialysis currently initiated through forearm fistula, 2 + DP pulses b/l, no calf tenderness no edema noted in ankles, well perfused. PSYCHIATRIC: Cooperative. Good eye contact. Appropriate mood and affect. SKIN: Warm, dry, no rashes or lesions noted. Laboratory Results 02/01/19 02/01/19 02/01/19 06:44 08:25 08:25 WBC 3.2 L RBC 1.87 L Hgb 6.6 L* Hct 17.9 L D MCV 95.4 MCH 35.2 H MCHC 36.9 H RDW 14.4 Plt Count 105 L MPV 8.1 Potassium > 10.0 H* Blood Type O POSITIVE Antibody Screen Negative Crossmatch See Detail Active Medications Generic Name Dose Route Start Last Admin Trade Name Freq PRN Reason Stop Dose Admin Escitalopram Oxalate 10 mg 02/02/19 10:00 Lexapro - PO DAILY ESTRELLA Pantoprazole Sodium 80 mg/ 100 mls @ 10 mls/hr 02/01/19 11:30 Sodium Chloride IVPB Q10H ESTRELLA 8 MG/HR Sodium Chloride 250 mls @ 3,000 mls/hr 02/01/19 11:32 Normal Saline - IV 02/02/19 11:33 PRN PRN Hypotension during Dialysis Pramipexole Dihydrochloride 0.25 mg 02/01/19 22:00 Mirapex - PO HS ESTRELLA Valproate Sodium 250 mg 02/02/19 08:00 Depakene - PO DAILY@0800 [facility] ASSESSMENT/PLAN: Acute blood lose anemia 2/2 to suspected UGIB Severe hyperkalemia Elongated QTc ESRD on HD Biologic aortic valve replacement HTN --Pt undergoing dialysis currently --F/u repeat potassium level for normalization --Repeat EKG post-dialysis with normal K+ level for resolution of QTc abnormalities --Postpone procedure until K+ has been corrected --NPO after midnight --Rest per GI service --Transfusion thresholds per GI/primary team --Currently receiving PRBC considering 6.6 Hgb --Repeat CBC 30min to 1hr after last transfusion --Continue Protonix gtt --Continue all home dose medications: Depakene 250mg qdaily Lexapro 10mg qdaily --Appreciate all tax credit leasing consultant recommendations FEN: Fluids: Bolus as needed; currently euvolemic and hemodynamically stable Electrolyte abnormalities: Hyperkalemia receiving dialysis Nutrition: NPO after midight for procedure PPX: DVT - SCDs only 2/2 to GI bleed GI - Protonix on board already Dispo: F/u post-dialysis potassium; would maintain on telemetry monitoring considering asymptomatic with hemodynamic stability at this time. If pt deteriorates at later point can re-evaluate for placement Case discussed with Dr. Himanshu Arroyo, DO - IM PGY-3 Visit type - Emergency Visit Emergency Visit: No - New Patient This patient is new to me today: Yes Date on this admission: 02/01/19 - Critical Care Critical Care patient: No
[2019-02-01] MEDS ORDERED: PT OWN MED DRAWER 7, Y5N ONE ×3 (15:11→21:07)
[2019-02-01 15:26] LABS: HEMATOCRIT 19.4 % (35.4-49); HEMOGLOBIN 7.1 GM/dL (11.7-16.9); MCHC 36.5 g/dl (32.0-35.9); MEAN CELL VOLUME 95.9 fl (80-96); MEAN PLT VOLUME 8.4 fl (7.5-11.1); PLATELET COUNT 91 K/MM3 (134-434); RBC 2.02 M/mm3 (4.00-5.60); RDW 14.6 % (11.9-15.9); WHITE BLOOD COUNT 2.8 K/mm3 (4.0-10.0)
--- NOTE | 2019-02-01 15:38 | CON.CARD ---
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 He was admitted with melena since Tuesday. Patient has been feeling dizzy and was noted to be pale. He also had a fall and complains of increased weakness. He was seen today in the endoscopy suite where he was being transfused with PRBC. EGD was cancelled due to electrolyte imbalance and severe anemia. Last endoscopy was done by Dr. Jose Sandoval in October of 2014. Currently he is seen by Dr. Marc Nichols. His K is 10 today and Hgb of 6.9. He denies chest pain, shortness of breath or palpitations. He denies paroxysmal nocturnal dyspnea or orthopnea. He denies fever or chills. He denies nausea, vomiting, diarrhea or abdominal pain. He denies headache or lightheadedness. He has been on ASA 81 mg QD which was stopped yesterday by Dr. Nichols. 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 Cardio/Vascular: Yes: CAD, HTN, Hyperlipdemia, Other (S/P AVR X2 (tissue valve) , because of an endocarditis ) Gastrointestinal: Yes: Other (HX OF GI BLEED ) Renal/: Yes: Renal Failure, Renal Inusuff, Hemodialysis, Other (Copy of the renal bx report from 02/11/14 which showed Moderately advanced Chronic Sclerosing Glomerulonephropathy, IgA nephropathy, Severe arterial and arteriolar Sclerosis, and Tubulo-Interstitial scarring.) - Past Surgical History Past Surgical History: Yes: Appendectomy, AV Fistula/Graft, Colonoscopy, Upper Endoscopy, Valve Replacement - Alcohol/Substance Use Hx Alcohol Use: No History of Substance Use: reports: None - Smoking History Smoking history: Former smoker Have you smoked in the past 12 months: No Aproximately how many cigarettes per day: 0 If you are a former smoker, when did you quit?: 40yrs ago light smoker - Social History Usual Living Arrangement: With Spouse ADL: Family Assistance History of Recent Travel: No Home Medications - Allergies Allergies/Adverse Reactions: Allergies Allergy/AdvReac Type Severity Reaction Status Date / Time No Known Allergies Allergy Verified 12/15/18 09:18 - Home Medications Home Medications: Ambulatory Orders Escitalopram Oxalate [Lexapro -] 10 mg PO DAILY 02/06/16 Finasteride [Proscar -] 5 mg PO DAILY 02/02/17 Linaclotide [Linzess] 72 mcg PO DAILY 07/06/17 Vitamin B Complex 1 each PO DAILY 07/06/17 Cyanocobalamin [Vitamin B12 -] 500 mcg PO DAILY 01/31/18 Sevelamer HCl [Renagel] 800 mg PO BID 02/02/18 Aspirin [Aspirin EC] 81 mg PO DAILY 12/15/18 Cholecalciferol (Vitamin D3) [Vitamin D3 -] 1,000 unit PO DAILY 12/15/18 Diazepam [Valium] 2 mg PO HS 12/15/18 Divalproex [Depakote -] 250 mg PO DAILY 12/15/18 Docusate Sodium [Colace -] 100 mg PO BID 12/15/18 Nifedipine [Procardia Xl] 60 mg PO ASDIR 12/15/18 Pantoprazole Sodium [Protonix -] 40 mg PO DAILY 12/15/18 Pramipexole Di-HCl [Mirapex] 0.25 mg PO DAILY 12/15/18 Family Disease History - Family Disease History Family Disease History: Diabetes: Mother, Brother (HTN), Other: Brother Review of Systems - Review of Systems Constitutional: reports: Weakness. denies: Chills, Fever Cardiovascular: denies: Chest Pain, Palpitations, Shortness of Breath Respiratory: denies: Cough, Hemoptysis, Orthopnea, PND, SOB, SOB on Exertion Gastrointestinal: reports: Melena, Rectal Bleeding. denies: Abdominal Pain, Constipation, Diarrhea, Nausea, Vomiting Neurological: denies: Dizziness, Headache, Seizure, Syncope Vital Signs: Vital Signs Temperature 98.1 F 02/01/19 14:40 Pulse Rate 60 02/01/19 14:40 Respiratory Rate 18 02/01/19 14:40 Blood Pressure 140/60 02/01/19 14:40 O2 Sat by Pulse Oximetry (%) 100 02/01/19 08:24 Eyes: Yes: PERRL HENT: Yes: Atraumatic Neck: Yes: Supple Respiratory: Yes: CTA Bilaterally Gastrointestinal: Yes: Normal Bowel Sounds, Soft, Melena Cardiovascular: Yes: Regular Rate and Rhythm JVD: No Carotid Bruit: No Heart Sounds: Yes: S1, S2. No: Gallop Murmur: Yes: Systolic Murmur, Grade 2 Edema: No - Other Data Labs, Other Data: Laboratory Results - last 24 hr 02/01/19 02/01/19 02/01/19 06:44 08:25 08:25 WBC 3.2 L RBC 1.87 L Hgb 6.6 L* Hct 17.9 L D MCV 95.4 MCH 35.2 H MCHC 36.9 H RDW 14.4 Plt Count 105 L MPV 8.1 Potassium > 10.0 H* Blood Type O POSITIVE Antibody Screen Negative Crossmatch See Detail 02/01/19 14:10 WBC 2.8 L RBC 2.02 L Hgb 7.1 L Hct 19.4 L MCV 95.9 MCH 35.0 H MCHC 36.5 H RDW 14.6 Plt Count 91 L MPV 8.4 Potassium Blood Type Antibody Screen Crossmatch Normal Sinus rhythm with nonspecific ST-T abnormality Imaging - Results EKG: Report Reviewed Assessment/Plan 1. GI bleed with profound anemia and chronic use of ASA 2. Post AVR (bioprosthesis) with history of paravalvular leak 3. History of endocarditis 4. CAD -non-obstructive, angina pectoris 5. HTN/HCVD 6. Hypercholesterolemia 7. 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 ESRD on HD via AV fistula PLAN: 1. Transfuse PRBC and monitor H/H with HD as per renal. Correct K 2. GI input noted and further endoscopic evaluation once clinically stable 3. ASA has been stopped and further decision to follow once stable GI perspective 4. When he was seen last in October of this year, he was on Procardia XL on nondialysis date. Monitor BP closely 5. Renal input noted. Discussed with family. Will follow with you. Thank you Guarded Jeff Chawla MD
[2019-02-01 15:55] LABS: ALBUMIN 3.5 g/dl (3.4-5.0); BILIRUBIN,TOTAL 0.3 mg/dL (0.2-1); BLOOD UREA NITROGEN 44.6 mg/dL (7-18); CALCIUM 8.6 mg/dL (8.5-10.1); CREATININE 3.4 mg/dL (0.55-1.3); TOT PROT 5.8 g/dl (6.4-8.2)
[2019-02-01 15:57] LABS: POTASSIUM 2.5 mmol/L (3.5-5.1)
[2019-02-01] MEDS: PANTOPRAZOLE SODIUM 80 MG in SODIUM CHLORIDE 100 ML IVPB SCH ×2 (17:14→22:48)
[2019-02-01 17:30] LABS: ALBUMIN 3.4 g/dl (3.4-5.0); BILIRUBIN,TOTAL 0.4 mg/dL (0.2-1); CALCIUM 8.6 mg/dL (8.5-10.1); CREATININE 1.9 mg/dL (0.55-1.3)
[2019-02-01 17:46] LABS: POTASSIUM 2.6 mmol/L (3.5-5.1)
[2019-02-01] MEDS ORDERED: POTASSIUM CHLORIDE TABS 20 MEQ TABLET.ER (FP) PO ONE ×2 (18:30→20:35)
[2019-02-01 18:54] LABS: BLOOD UREA NITROGEN 12.6 mg/dL (7-18); CALCIUM 9.3 mg/dL (8.5-10.1); CREATININE 1.3 mg/dL (0.55-1.3)
[2019-02-01] MEDS: PRAMIPEXOLE DIHYDROCHLORIDE 0.25 MG TABLET PO SCH (22:47)
[2019-02-02 01:49] LABS: MCHC 35.6 g/dl (32.0-35.9); MEAN PLT VOLUME 8.7 fl (7.5-11.1); RDW 15.5 % (11.9-15.9); WHITE BLOOD COUNT 3.9 K/mm3 (4.0-10.0)
[2019-02-02 01:53] LABS: HEMATOCRIT 26.5 % (35.4-49); HEMOGLOBIN 9.4 GM/dL (11.7-16.9); MCH 33.2 pg (25.7-33.7); MEAN CELL VOLUME 93.3 fl (80-96); PLATELET COUNT 100 K/MM3 (134-434); RBC 2.84 M/mm3 (4.00-5.60)
[2019-02-02] MEDS: PANTOPRAZOLE SODIUM 80 MG in SODIUM CHLORIDE 100 ML IVPB SCH ×3 (03:44→17:09)
[2019-02-02] MEDS ORDERED: VALPROATE SODIUM 250 MG/5 ML UNIT DOSE CUP PO SCH (08:00)
--- NOTE | 2019-02-02 08:03 | PN.GI ---
GI Progress Note Subjective: Patient denies melena, rectal bleeding, or blood in stool last night. Denies abdominal pain, nausea or vomiting. Labs show improved K+ from 10 to 3.0, Hg 6.9 to 9.4 s/p 3U PRBC transfused. - Objective Vital Signs: Vital Signs Temperature 99.0 F 02/02/19 06:00 Pulse Rate 56 L 02/02/19 06:00 Respiratory Rate 16 02/02/19 06:00 Blood Pressure 137/53 L 02/02/19 06:00 O2 Sat by Pulse Oximetry (%) 98 02/01/19 21:00 Constitutional: No Distress, Calm Eyes: Yes: Conjunctiva Clear HENT: Yes: Atraumatic Cardiovascular: Yes: Regular Rate and Rhythm Respiratory: Yes: Regular, CTA Bilaterally Gastrointestinal Inspection: Yes: WNL. No: Ascites, Distention, Hernia, Scars, Other ...Auscultate: Yes: Normoactive Bowel Sounds. No: Hyperactive Bowel Sounds, Hypoactive Bowel Sounds, No Bowel Sounds, Other ...Palpate: Yes: Soft, Tenderness (LUQ, RUQ), Tenderness, Epigastium. No: Firm/ Rigid, Guarding, Hepatomegaly, Mass, Pulsatile Mass, Splenomegaly, Tenderness, Rebound, Other ...Percussion: Yes: Tympanitic. No: Dullness, Fluid Wave, Other Neurological: Yes: Alert, Oriented Psychiatric: Yes: Alert, Oriented Problem List - Problems (1) GI bleeding Assessment/Plan: R> for EGD in am once cleared by Cardiology IV Protonix transfuse for Hg <8.0 monitor CBC daily Code(s): K92.2 - GASTROINTESTINAL HEMORRHAGE, UNSPECIFIED
[2019-02-02 08:07] LABS: ALBUMIN 3.1 g/dl (3.4-5.0); ALK PHOS 62 U/L (45-117); ANION GAP 4 MMOL/L (8-16); BILIRUBIN,TOTAL 0.7 mg/dL (0.2-1); BLOOD UREA NITROGEN 30.7 mg/dL (7-18); CALCIUM 9.1 mg/dL (8.5-10.1); CHLORIDE 102 mmol/L (98-107); CO2 33 mmol/L (21-32); CREATININE 3.8 mg/dL (0.55-1.3); GLUCOSE,RANDOM 95 mg/dL (74-106); MAGNESIUM 1.9 mg/dL (1.8-2.4); PHOSPHOROUS 3.2 mg/dL (2.5-4.9); POTASSIUM 4.5 mmol/L (3.5-5.1); SGOT/AST 9 U/L (15-37); SGPT/ALT 13 U/L (13-61); SODIUM 139 mmol/L (136-145); TOT PROT 5.2 g/dl (6.4-8.2)
[2019-02-02 08:25] LABS: BASO % 0.8 % (0-2.0); EOS % 1.1 % (0-4.5); HEMOGLOBIN 9.4 GM/dL (11.7-16.9); MCH 33.4 pg (25.7-33.7); MEAN CELL VOLUME 92.9 fl (80-96); MEAN PLT VOLUME 8.6 fl (7.5-11.1); MONO % 7.7 % (3.8-10.2); NEUT % 76.4 % (42.8-82.8); PLATELET COUNT 99 K/MM3 (134-434); RDW 15.7 % (11.9-15.9); WHITE BLOOD COUNT 3.6 K/mm3 (4.0-10.0)
--- NOTE | 2019-02-02 09:52 | PN ---
Progress Note, Physician History of Present Illness: Decreasing melena, dizziness, pallor and weakness improving after 3 u pRBC, denies chest pain or dyspnea. - Current Medication List Current Medications: Active Medications Escitalopram Oxalate (Lexapro -) 10 mg PO DAILY [facility] Last Admin: 02/02/19 09:30 Dose: 10 mg Pantoprazole Sodium 80 mg/ (Sodium Chloride) 100 mls @ 10 mls/hr IVPB Q10H [facility] Last Admin: 02/02/19 08:15 Dose: 10 mls/hr Sodium Chloride (Normal Saline -) 250 mls @ 3,000 mls/hr IV PRN PRN PRN Reason: Hypotension during Dialysis Stop: 02/02/19 11:33 Pramipexole Dihydrochloride (Mirapex -) 0.25 mg PO HS [facility] Last Admin: 02/01/19 22:47 Dose: 0.25 mg Valproate Sodium (Depakene -) 250 mg PO DAILY@0800 [facility] Last Admin: 02/02/19 08:15 Dose: 250 mg - Objective Vital Signs: Vital Signs Temperature 99.0 F 02/02/19 06:00 Pulse Rate 56 L 02/02/19 06:00 Respiratory Rate 16 02/02/19 06:00 Blood Pressure 137/53 L 02/02/19 06:00 O2 Sat by Pulse Oximetry (%) 98 02/01/19 21:00 Constitutional: Yes: No Distress, Calm, Thin Neck: Yes: Supple Cardiovascular: Yes: Regular Rate and Rhythm Respiratory: Yes: Regular, CTA Bilaterally Gastrointestinal: Yes: Soft, Hypoactive Bowel Sounds, Melena Edema: No Labs: CBC, BMP 02/02/19 06:50 02/02/19 06:50 - ....Imaging EKG: Report Reviewed (Tele: SB) Problem List - Problems (1) GI bleeding Code(s): K92.2 - GASTROINTESTINAL HEMORRHAGE, UNSPECIFIED Qualifiers: GI bleed type/associated pathology: melena Qualified Code(s): K92.1 - Melena (2) Hyperkalemia Code(s): E87.5 - HYPERKALEMIA (3) Abdominal pain Code(s): R10.9 - UNSPECIFIED ABDOMINAL PAIN Qualifiers: Abdominal location: left lower quadrant Qualified Code(s): R10.32 - Left lower quadrant pain (4) Anemia Code(s): D64.9 - ANEMIA, UNSPECIFIED Qualifiers: Other causes of anemia: acute posthemorrhagic (5) Bradycardia Code(s): R00.1 - BRADYCARDIA, UNSPECIFIED (6) ESRD (end stage renal disease) Code(s): N18.6 - END STAGE RENAL DISEASE (7) Heart valve replaced Code(s): Z95.2 - PRESENCE OF PROSTHETIC HEART VALVE (8) Hypertension Code(s): I10 - ESSENTIAL (PRIMARY) HYPERTENSION Qualifiers: Hypertension type: essential hypertension Qualified Code(s): I10 - Essential (primary) hypertension (9) Melena Code(s): K92.1 - MELENA (10) Pre-operative cardiovascular examination Code(s): Z01.810 - ENCOUNTER FOR PREPROCEDURAL CARDIOVASCULAR EXAMINATION Assessment/Plan 1. GI bleed (melena) with profound anemia and chronic use of ASA s/p 3 U pRBC 2. Post AVR (bioprosthesis) with history of paravalvular leak 3. History of endocarditis 4. CAD -non-obstructive, angina pectoris 5. HTN/HCVD 6. Hypercholesterolemia 7. 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 ESRD on HD via AV fistula PLAN: 1. Monitor H/H and transfuse as needed with HD as per renal. Correct K 2. May proceed with EGD from CV standpoint w/o further testing given absence of symptoms of acute coronary syndrome, decompensated CHF or malignant arrhythmia 3. ASA has been stopped, continue IV Protonix and eventual decision to resume ASA once hemostasis achieved 4. Resume Procardia XL on non-dialysis date as hemodynamics tolerate. Monitor BP closely 5. Renal input noted.
[2019-02-02] MEDS ORDERED: ESCITALOPRAM OXALATE 10 MG TABLET (FP) PO SCH (10:00)
--- NOTE | 2019-02-02 10:40 | PN ---
Progress Note, Physician Chief Complaint: NPO today for EGD at 2:00pm h/h stable s/p 3 unit of prbc with HD - Current Medication List Current Medications: Active Medications Escitalopram Oxalate (Lexapro -) 10 mg PO DAILY [facility] Last Admin: 02/02/19 09:30 Dose: 10 mg Pantoprazole Sodium 80 mg/ (Sodium Chloride) 100 mls @ 10 mls/hr IVPB Q10H [facility] Last Admin: 02/02/19 08:15 Dose: 10 mls/hr Sodium Chloride (Normal Saline -) 250 mls @ 3,000 mls/hr IV PRN PRN PRN Reason: Hypotension during Dialysis Stop: 02/02/19 11:33 Pramipexole Dihydrochloride (Mirapex -) 0.25 mg PO HS [facility] Last Admin: 02/01/19 22:47 Dose: 0.25 mg Valproate Sodium (Depakene -) 250 mg PO DAILY@0800 [facility] Last Admin: 02/02/19 08:15 Dose: 250 mg - Objective Vital Signs: Vital Signs Temperature 99.0 F 02/02/19 06:00 Pulse Rate 56 L 02/02/19 06:00 Respiratory Rate 16 02/02/19 06:00 Blood Pressure 137/53 L 02/02/19 06:00 O2 Sat by Pulse Oximetry (%) 98 02/01/19 21:00 Constitutional: Yes: Calm Cardiovascular: Yes: Regular Rate and Rhythm, S1, S2 Respiratory: Yes: CTA Bilaterally Gastrointestinal: Yes: Normal Bowel Sounds, Soft Edema: No Neurological: Yes: Alert, Oriented Labs: CBC, BMP 02/02/19 06:50 02/02/19 06:50 Problem List - Problems (1) GIB (gastrointestinal bleeding) Assessment/Plan: NPO for EGD today s/p 3 units PRBC with HD yesterday h/h stable Code(s): K92.2 - GASTROINTESTINAL HEMORRHAGE, UNSPECIFIED (2) Weakness Assessment/Plan: related to anemia PT eval Code(s): R53.1 - WEAKNESS (3) Hyperkalemia Assessment/Plan: now resolved Code(s): E87.5 - HYPERKALEMIA (4) ESRD (end stage renal disease) Assessment/Plan: s/p HD yesterday Code(s): N18.6 - END STAGE RENAL DISEASE
[2019-02-02 11:22] LABS: HEMATOCRIT 26.4 % (35.4-49); HEMOGLOBIN 9.5 GM/dL (11.7-16.9); MCH 33.4 pg (25.7-33.7); MEAN CELL VOLUME 92.7 fl (80-96); MEAN PLT VOLUME 8.4 fl (7.5-11.1); PLATELET COUNT 105 K/MM3 (134-434); RBC 2.84 M/mm3 (4.00-5.60); RDW 15.7 % (11.9-15.9); WHITE BLOOD COUNT 4.1 K/mm3 (4.0-10.0)
--- NOTE | 2019-02-02 13:23 | PN ---
Progress Note, Physician History of Present Illness: Pt seen and examined at bedside. He is awake and alert. He is going for endoscopy today. - Current Medication List Current Medications: Active Medications Escitalopram Oxalate (Lexapro -) 10 mg PO DAILY [facility] Last Admin: 02/02/19 09:30 Dose: 10 mg Pantoprazole Sodium 80 mg/ (Sodium Chloride) 100 mls @ 10 mls/hr IVPB Q10H [facility] Last Admin: 02/02/19 08:15 Dose: 10 mls/hr Pramipexole Dihydrochloride (Mirapex -) 0.25 mg PO HS [facility] Last Admin: 02/01/19 22:47 Dose: 0.25 mg Valproate Sodium (Depakene -) 250 mg PO DAILY@0800 [facility] Last Admin: 02/02/19 08:15 Dose: 250 mg - Objective Vital Signs: Vital Signs Temperature 98.3 F 02/02/19 10:00 Pulse Rate 52 L 02/02/19 10:00 Respiratory Rate 17 02/02/19 10:00 Blood Pressure 123/49 L 02/02/19 10:00 O2 Sat by Pulse Oximetry (%) 97 02/02/19 09:00 Constitutional: Yes: Calm Eyes: Yes: Conjunctiva Clear HENT: Yes: Atraumatic Neck: Yes: Supple Cardiovascular: Yes: S1, S2 Respiratory: Yes: CTA Bilaterally Gastrointestinal: Yes: Soft Genitourinary: Yes: WNL Musculoskeletal: Yes: WNL Edema: No Integumentary: Yes: WNL Neurological: Yes: Oriented Psychiatric: Yes: Oriented Labs: CBC, BMP 02/02/19 10:39 02/02/19 06:50 Problem List - Problems (1) GI bleeding Code(s): K92.2 - GASTROINTESTINAL HEMORRHAGE, UNSPECIFIED Qualifiers: GI bleed type/associated pathology: melena Qualified Code(s): K92.1 - Melena (2) Hyperkalemia Code(s): E87.5 - HYPERKALEMIA (3) ESRD (end stage renal disease) Code(s): N18.6 - END STAGE RENAL DISEASE Assessment/Plan Current Medications Generic Name Dose Route Start Last Admin Trade Name Freq PRN Reason Stop Dose Admin Escitalopram Oxalate 10 mg 02/02/19 10:00 02/02/19 09:30 Lexapro - PO 10 mg DAILY ESTRELLA Administration Pantoprazole Sodium 80 mg/ 100 mls @ 10 mls/hr 02/01/19 11:30 02/02/19 08:15 Sodium Chloride IVPB 10 mls/hr Q10H ESTRELLA Administration 8 MG/HR Pramipexole Dihydrochloride 0.25 mg 02/01/19 22:00 02/01/19 22:47 Mirapex - PO 0.25 mg HS ESTRELLA Administration Valproate Sodium 250 mg 02/02/19 08:00 02/02/19 08:15 Depakene - PO 250 mg DAILY@0800 ESTRELLA Administration Impression 1. ESRD 2. Gi bleed 3. anemia 4. thrombocytopenia 5. HTN 6. bovine AVR 7. hyperkalemia Plan - potassium is stable - HD tomorrow - orders written - renal diet once eating - the potassium of greater than 10 was a lab error - discussed with family
[2019-02-02] MEDS ORDERED: SODIUM CHLORIDE 250 ML IV PRN (13:24)
[2019-02-02] MEDS ORDERED: PT OWN MED DRAWER 7, Y5N ONE ×2 (17:07→20:21)
[2019-02-02] MEDS ORDERED: diazePAM 2 MG TABLET PO ONE (20:03)
[2019-02-02] MEDS ORDERED: ACETAMINOPHEN 500 MG TABLET (FP) PO ONE (20:04)
[2019-02-02] MEDS: PRAMIPEXOLE DIHYDROCHLORIDE 0.25 MG TABLET PO SCH ×2 (21:12→22:14)
[2019-02-03] MEDS: PANTOPRAZOLE SODIUM 80 MG in SODIUM CHLORIDE 100 ML IVPB SCH ×3 (03:21→23:36)
[2019-02-03] MEDS: SODIUM CHLORIDE 250 ML IV PRN ×2 (07:40→08:00)
[2019-02-03] MEDS ORDERED: EPOETIN ALFA 10,000 UNIT/1 ML VIAL IVPUSH ONE ×2 (08:00→13:24)
[2019-02-03 08:11] LABS: ALBUMIN 3.1 g/dl (3.4-5.0); BILIRUBIN,TOTAL 0.6 mg/dL (0.2-1); BLOOD UREA NITROGEN 46.1 mg/dL (7-18); CALCIUM 9.5 mg/dL (8.5-10.1); CREATININE 5.5 mg/dL (0.55-1.3); POTASSIUM 4.2 mmol/L (3.5-5.1); TOT PROT 5.1 g/dl (6.4-8.2)
[2019-02-03 08:17] LABS: BASO % 1.1 % (0-2.0); EOS % 3.1 % (0-4.5); HEMATOCRIT 25.9 % (35.4-49); HEMOGLOBIN 9.2 GM/dL (11.7-16.9); LYMPH % 18.6 % (8-40); MCH 33.3 pg (25.7-33.7); MCHC 35.6 g/dl (32.0-35.9); MEAN CELL VOLUME 93.5 fl (80-96); MEAN PLT VOLUME 8.3 fl (7.5-11.1); MONO % 7.6 % (3.8-10.2); NEUT % 69.6 % (42.8-82.8); PLATELET COUNT 98 K/MM3 (134-434); RBC 2.77 M/mm3 (4.00-5.60); RDW 15.1 % (11.9-15.9); WHITE BLOOD COUNT 3.6 K/mm3 (4.0-10.0)
--- NOTE | 2019-02-03 09:50 | PN ---
Progress Note, Physician Chief Complaint: Being dialyzed this morning Not in distress History of Present Illness: Patient was seen and examined. Awake and alert. Chart was reviewed Denies chest pain, SOB or palpitations - Current Medication List Current Medications: Active Medications Escitalopram Oxalate (Lexapro -) 10 mg PO DAILY [facility] Sodium Chloride (Normal Saline -) 250 mls @ 3,000 mls/hr IV PRN PRN PRN Reason: Hypotension during Dialysis Stop: 02/03/19 13:24 Last Admin: 02/03/19 08:00 Dose: 3,000 mls/hr Pantoprazole Sodium 80 mg/ (Sodium Chloride) 100 mls @ 10 mls/hr IVPB Q10H [facility] Last Admin: 02/03/19 03:21 Dose: 10 mls/hr Pramipexole Dihydrochloride (Mirapex -) 0.25 mg PO HS [facility] Last Admin: 02/02/19 22:14 Dose: Not Given Valproate Sodium (Depakene -) 250 mg PO DAILY@0800 [facility] - Objective Vital Signs: Vital Signs Temperature 97.9 F 02/03/19 08:31 Pulse Rate 60 02/03/19 09:30 Respiratory Rate 16 02/03/19 09:30 Blood Pressure 115/55 L 02/03/19 09:30 O2 Sat by Pulse Oximetry (%) 99 02/02/19 21:00 Eyes: Yes: PERRL HENT: Yes: Atraumatic Neck: Yes: Supple Cardiovascular: Yes: Regular Rate and Rhythm, Murmur (Diastolic murmur), S1, S2 Respiratory: Yes: CTA Bilaterally Gastrointestinal: Yes: Normal Bowel Sounds, Soft. No: Tenderness Edema: No Additional Findings/Remarks: - Review of Systems Constitutional: reports: Weakness. denies: Chills, Fever Cardiovascular: denies: Chest Pain, Palpitations, Shortness of Breath Respiratory: denies: Cough, Hemoptysis, Orthopnea, PND, SOB, SOB on Exertion Gastrointestinal: reports: Melena, Rectal Bleeding. denies: Abdominal Pain, Constipation, Diarrhea, Nausea, Vomiting Neurological: denies: Dizziness, Headache, Seizure, Syncope Labs: CBC, BMP 02/03/19 06:40 02/03/19 06:40 Problem List - Problems (1) CAD (coronary artery disease) Code(s): I25.10 - ATHSCL HEART DISEASE OF [place] CORONARY ARTERY W/O ANG PCTRS Qualifiers: Coronary Disease-Associated Artery/Lesion type: [place] artery [place] vs. transplanted heart: [place] heart Associated angina: without angina Qualified Code(s): I25.10 - Atherosclerotic heart disease of [place] coronary artery without angina pectoris (2) H/O aortic valve replacement with tissue graft Code(s): Z95.4 - PRESENCE OF OTHER HEART-VALVE REPLACEMENT (3) GI bleeding Code(s): K92.2 - GASTROINTESTINAL HEMORRHAGE, UNSPECIFIED Qualifiers: GI bleed type/associated pathology: melena Qualified Code(s): K92.1 - Melena (4) Anemia Code(s): D64.9 - ANEMIA, UNSPECIFIED Qualifiers: Other causes of anemia: acute posthemorrhagic (5) CKD (chronic kidney disease) Code(s): N18.9 - CHRONIC KIDNEY DISEASE, UNSPECIFIED (6) CVA (cerebral infarction) Code(s): I63.9 - CEREBRAL INFARCTION, UNSPECIFIED (7) ESRD (end stage renal disease) Code(s): N18.6 - END STAGE RENAL DISEASE (8) Hypertension Code(s): I10 - ESSENTIAL (PRIMARY) HYPERTENSION Qualifiers: Hypertension type: essential hypertension Qualified Code(s): I10 - Essential (primary) hypertension Assessment/Plan 1. GI bleed (melena) with profound anemia and chronic use of ASA s/p PRBC transfusion 2. Post AVR (bioprosthesis) with history of paravalvular leak 3. History of endocarditis 4. CAD - non-obstructive, angina pectoris 5. HTN/HCVD 6. Hypercholesterolemia 7. 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 ESRD on HD via AV fistula PLAN: 1. Monitor H/H and transfuse as needed with HD as per renal. 2. May proceed with EGD from CV standpoint w/o further testing given absence of symptoms of acute coronary syndrome, decompensated heart failure or malignant arrhythmia 3. ASA has been stopped, continue IV Protonix and eventual decision to resume ASA once hemostasis achieved 4. Procardia XL on non-dialysis date as hemodynamics tolerate. Monitor BP closely Further plans are to follow Jeff Chawla MD
[2019-02-03] MEDS: ESCITALOPRAM OXALATE 10 MG TABLET (FP) PO SCH (11:15)
[2019-02-03] MEDS: VALPROATE SODIUM 250 MG/5 ML UNIT DOSE CUP PO SCH (11:15)
[2019-02-03 12:12] LABS: HEMATOCRIT 29.7 % (35.4-49); HEMOGLOBIN 10.5 GM/dL (11.7-16.9); MCH 33.2 pg (25.7-33.7); MCHC 35.2 g/dl (32.0-35.9); MEAN CELL VOLUME 94.2 fl (80-96); MEAN PLT VOLUME 8.4 fl (7.5-11.1); PLATELET COUNT 107 K/MM3 (134-434); RBC 3.16 M/mm3 (4.00-5.60); RDW 15.3 % (11.9-15.9); WHITE BLOOD COUNT 3.3 K/mm3 (4.0-10.0)
--- NOTE | 2019-02-03 13:13 | PN ---
Progress Note (short form) - Note Progress Note: RENAL Pt is awake and alert denies complaints Last Vital Signs Temp Pulse Resp BP Pulse Ox 97.8 F 54 L 16 123/52 L 99 02/03/19 11:00 02/03/19 11:00 02/03/19 11:00 02/03/19 11:00 02/02/19 21:00 lungs clear cvs s1s2 rr +caty abd soft ext no edema neuro a+ox3 CBC, BMP 02/03/19 11:31 02/03/19 06:40 Current Medications Generic Name Dose Route Start Last Admin Trade Name Freq PRN Reason Stop Dose Admin Escitalopram Oxalate 10 mg 02/03/19 10:00 02/03/19 11:15 Lexapro - PO 10 mg DAILY ESTRELLA Administration Sodium Chloride 250 mls @ 3,000 mls/hr 02/02/19 21:34 02/03/19 08:00 Normal Saline - IV 02/03/19 13:24 3,000 mls/hr PRN PRN Administration Hypotension during Dialysis Pantoprazole Sodium 80 mg/ 100 mls @ 10 mls/hr 02/03/19 03:30 02/03/19 03:21 Sodium Chloride IVPB 10 mls/hr Q10H ESTRELLA Administration 8 MG/HR Pramipexole Dihydrochloride 0.25 mg 02/02/19 22:00 02/02/19 22:14 Mirapex - PO Not Given HS ESTRELLA Valproate Sodium 250 mg 02/03/19 08:00 02/03/19 11:15 Depakene - PO 250 mg DAILY@0800 ESTRELLA Administration Impression 1. ESRD 2. Gi bleed 3. anemia 4. thrombocytopenia 5. HTN 6. bovine AVR 7. hyperkalemia- lab error Plan had hd today which he tolerated continue current management MV
--- NOTE | 2019-02-03 15:01 | PN.GI ---
GI Progress Note Subjective: For Dr. Nichols who resumes care 02/05 No overt bleeding Slight LLQ pain S/P EGD 02/02 w/ clipping of dieulafoy vessel noted - Objective Vital Signs: Vital Signs Temperature 98.1 F 02/03/19 14:27 Pulse Rate 54 L 02/03/19 14:27 Respiratory Rate 18 02/03/19 14:27 Blood Pressure 117/49 L 02/03/19 14:27 O2 Sat by Pulse Oximetry (%) 99 02/02/19 21:00 Constitutional: Calm Eyes: No: Sclera Icterus Cardiovascular: Yes: Regular Rate and Rhythm, Murmur Respiratory: Yes: CTA Bilaterally Gastrointestinal Inspection: Yes: Scars (RLQ scar) ...Auscultate: Yes: Normoactive Bowel Sounds ...Palpate: Yes: Soft, Tenderness (Mild TTP LLQ) ...Percussion: No: Tympanitic Edema: No (No LE edema) Neurological: Yes: Alert Labs: CBC, BMP 02/03/19 11:31 02/03/19 06:40 Laboratory Tests 02/03/19 02/03/19 06:40 11:31 Hgb 9.2 L 10.5 L Problem List - Problems (1) GI bleeding Assessment/Plan: Melena prior to admission s/p EGD 02/02 revealing dieulafoy lesion. S/P endoclipping. No overt bleeding with stable/improved H/H Monitor for active GI bleed Change to BID PPI tomorrow Code(s): K92.2 - GASTROINTESTINAL HEMORRHAGE, UNSPECIFIED Qualifiers: GI bleed type/associated pathology: melena Qualified Code(s): K92.1 - Melena
[2019-02-03] MEDS ORDERED: ACETAMINOPHEN 325 MG TABLET (FP) PO PRN (20:11)
--- NOTE | 2019-02-03 20:13 | PN ---
Progress Note, Physician Chief Complaint: GI bleeding Anemia Dizziness History of Present Illness: NAD feels better Seen by GI S/P EGD with clipping of dieulafoy vessel - Current Medication List Current Medications: Active Medications Escitalopram Oxalate (Lexapro -) 10 mg PO DAILY [facility] Last Admin: 02/03/19 11:15 Dose: 10 mg Pantoprazole Sodium 80 mg/ (Sodium Chloride) 100 mls @ 10 mls/hr IVPB Q10H [facility] Stop: 02/04/19 06:00 Last Admin: 02/03/19 13:49 Dose: 10 mls/hr Pantoprazole Sodium (Protonix -) 40 mg PO BID [facility] Pramipexole Dihydrochloride (Mirapex -) 0.25 mg PO HS [facility] Last Admin: 02/02/19 22:14 Dose: Not Given Valproate Sodium (Depakene -) 250 mg PO DAILY@0800 [facility] Last Admin: 02/03/19 11:15 Dose: 250 mg - Objective Vital Signs: Vital Signs Temperature 98.8 F 02/03/19 18:24 Pulse Rate 63 02/03/19 18:24 Respiratory Rate 18 02/03/19 18:24 Blood Pressure 138/60 02/03/19 18:24 O2 Sat by Pulse Oximetry (%) 100 02/03/19 09:00 Constitutional: Yes: Well Nourished, No Distress, Calm Cardiovascular: Yes: Regular Rate and Rhythm Respiratory: Yes: Regular Gastrointestinal: Yes: Normal Bowel Sounds, Soft, Tenderness (LLQ) Genitourinary: Yes: WNL Musculoskeletal: Yes: WNL Extremities: Yes: WNL Edema: No Peripheral Pulses WNL: Yes Neurological: Yes: Alert, Oriented Psychiatric: Yes: Alert, Oriented Labs: CBC, BMP 02/03/19 11:31 02/03/19 06:40 Problem List - Problems (1) GI bleeding Assessment/Plan: -H/H much improved -S/P EGD - clipping of dieulafoy vessel -GI on board -PPI drip -No overt bleeding -Switch to oral PPI in AM -Monitor H/H Code(s): K92.2 - GASTROINTESTINAL HEMORRHAGE, UNSPECIFIED Qualifiers: GI bleed type/associated pathology: melena Qualified Code(s): K92.1 - Melena (2) Hyperkalemia Assessment/Plan: -resolved -monitor daily labs Code(s): E87.5 - HYPERKALEMIA (3) End stage kidney disease Assessment/Plan: -nephrology on board -HD as per renal -renal diet Code(s): N18.6 - END STAGE RENAL DISEASE (4) History of aortic valve replacement with bioprosthetic valve Code(s): Z95.3 - PRESENCE OF XENOGENIC HEART VALVE (5) CAD (coronary artery disease) Assessment/Plan: -cardiology on board -Tele monitor -ASA on hold Code(s): I25.10 - ATHSCL HEART DISEASE OF [place] CORONARY ARTERY W/O ANG PCTRS Qualifiers: Coronary Disease-Associated Artery/Lesion type: [place] artery [place] vs. transplanted heart: [place] heart Associated angina: without angina Qualified Code(s): I25.10 - Atherosclerotic heart disease of [place] coronary artery without angina pectoris
[2019-02-03] MEDS ORDERED: PT OWN MED DRAWER 7, Y5N ONE (21:09)
[2019-02-03] MEDS: PRAMIPEXOLE DIHYDROCHLORIDE 0.25 MG TABLET PO SCH (21:14)
[2019-02-04 07:20] LABS: EOS % 2.6 % (0-4.5); HEMATOCRIT 27.1 % (35.4-49); HEMOGLOBIN 9.6 GM/dL (11.7-16.9); LYMPH % 17.8 % (8-40); MCH 33.4 pg (25.7-33.7); MCHC 35.3 g/dl (32.0-35.9); MEAN CELL VOLUME 94.8 fl (80-96); MEAN PLT VOLUME 8.4 fl (7.5-11.1); MONO % 8.3 % (3.8-10.2); NEUT % 70.3 % (42.8-82.8); PLATELET COUNT 95 K/MM3 (134-434); RBC 2.86 M/mm3 (4.00-5.60); RDW 15.4 % (11.9-15.9)
[2019-02-04 07:35] LABS: BILIRUBIN,TOTAL 0.5 mg/dL (0.2-1); BLOOD UREA NITROGEN 20.1 mg/dL (7-18); CALCIUM 9.6 mg/dL (8.5-10.1); CREATININE 4.3 mg/dL (0.55-1.3); POTASSIUM 3.6 mmol/L (3.5-5.1)
[2019-02-04] MEDS: VALPROATE SODIUM 250 MG/5 ML UNIT DOSE CUP PO SCH (08:01)
--- NOTE | 2019-02-04 09:08 | PN ---
Progress Note, Physician Chief Complaint: Not in distress History of Present Illness: Patient was seen and examined. Awake and alert. Chart was reviewed Denies chest pain, SOB or palpitations - Current Medication List Current Medications: Active Medications Acetaminophen (Tylenol -) 650 mg PO Q4H PRN PRN Reason: PAIN OR FEVER Escitalopram Oxalate (Lexapro -) 10 mg PO DAILY [facility] Last Admin: 02/03/19 11:15 Dose: 10 mg Finasteride (Proscar -) 5 mg PO DAILY [facility] Pantoprazole Sodium (Protonix -) 40 mg PO BID [facility] Pramipexole Dihydrochloride (Mirapex -) 0.25 mg PO HS [facility] Last Admin: 02/03/19 21:14 Dose: 0.25 mg Valproate Sodium (Depakene -) 250 mg PO DAILY@0800 [facility] Last Admin: 02/04/19 08:01 Dose: 250 mg - Objective Vital Signs: Vital Signs Temperature 98.3 F 02/04/19 08:05 Pulse Rate 80 02/04/19 08:05 Respiratory Rate 18 02/04/19 08:05 Blood Pressure 128/58 L 02/04/19 08:05 O2 Sat by Pulse Oximetry (%) 97 02/03/19 21:00 Eyes: Yes: PERRL HENT: Yes: Atraumatic Neck: Yes: Supple Cardiovascular: Yes: Regular Rate and Rhythm, Murmur (diastolic murmur), S1, S2 Respiratory: Yes: CTA Bilaterally Gastrointestinal: Yes: Normal Bowel Sounds, Soft. No: Tenderness Edema: No Additional Findings/Remarks: - Review of Systems Constitutional: reports: Weakness. denies: Chills, Fever Cardiovascular: denies: Chest Pain, Palpitations, Shortness of Breath Respiratory: denies: Cough, Hemoptysis, Orthopnea, PND, SOB, SOB on Exertion Gastrointestinal: reports: Melena, Rectal Bleeding. denies: Abdominal Pain, Constipation, Diarrhea, Nausea, Vomiting Neurological: denies: Dizziness, Headache, Seizure, Syncope Labs: CBC, BMP 02/04/19 06:35 02/04/19 06:35 Problem List - Problems (1) CAD (coronary artery disease) Code(s): I25.10 - ATHSCL HEART DISEASE OF [place] CORONARY ARTERY W/O ANG PCTRS Qualifiers: Coronary Disease-Associated Artery/Lesion type: [place] artery [place] vs. transplanted heart: [place] heart Associated angina: without angina Qualified Code(s): I25.10 - Atherosclerotic heart disease of [place] coronary artery without angina pectoris (2) H/O aortic valve replacement with tissue graft Code(s): Z95.4 - PRESENCE OF OTHER HEART-VALVE REPLACEMENT (3) GI bleeding Code(s): K92.2 - GASTROINTESTINAL HEMORRHAGE, UNSPECIFIED Qualifiers: GI bleed type/associated pathology: melena Qualified Code(s): K92.1 - Melena (4) Anemia Code(s): D64.9 - ANEMIA, UNSPECIFIED Qualifiers: Other causes of anemia: acute posthemorrhagic (5) CKD (chronic kidney disease) Code(s): N18.9 - CHRONIC KIDNEY DISEASE, UNSPECIFIED (6) CVA (cerebral infarction) Code(s): I63.9 - CEREBRAL INFARCTION, UNSPECIFIED (7) ESRD (end stage renal disease) Code(s): N18.6 - END STAGE RENAL DISEASE (8) Hypertension Code(s): I10 - ESSENTIAL (PRIMARY) HYPERTENSION Qualifiers: Hypertension type: essential hypertension Qualified Code(s): I10 - Essential (primary) hypertension Assessment/Plan 1. GI bleed (melena) with profound anemia and chronic use of ASA s/p PRBC transfusion 2. Post AVR (bioprosthesis) with history of paravalvular leak 3. History of endocarditis 4. CAD - non-obstructive, angina pectoris 5. HTN/HCVD 6. Hypercholesterolemia 7. 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 ESRD on HD via AV fistula PLAN: 1. Monitor H/H and transfuse as needed with HD as per renal. 2. Post EGD on 02/02 3. Resume ASA once hemostasis achieved and cleared by GI 4. Procardia XL on non-dialysis date as hemodynamics tolerate Further plans are to follow Jeff Chawla MD
[2019-02-04] MEDS: ESCITALOPRAM OXALATE 10 MG TABLET (FP) PO SCH (09:21)
[2019-02-04] MEDS ORDERED: PANTOPRAZOLE 40 MG TABLET (FP) PO SCH (10:00)
[2019-02-04] MEDS ORDERED: FINASTERIDE 5 MG TABLET (FP) PO SCH (10:00)
--- NOTE | 2019-02-04 10:29 | DS ---
Physical Examination Vital Signs: Vital Signs Temperature 98.3 F 02/04/19 08:05 Pulse Rate 80 02/04/19 08:05 Respiratory Rate 18 02/04/19 08:05 Blood Pressure 128/58 L 02/04/19 08:05 O2 Sat by Pulse Oximetry (%) 96 02/04/19 09:00 Findings/Remarks: 68 yr old male HTN,HLD, Aortic valve replacement, parkinson disease and ESRD on HD came in because melanotic stools since tuesday, per daughter he has been having dark stools daily since tuesday , she took him to see PMD tuesday and who did blood work and told him to come to dr you for EGD, patient has been feeling dizzy as well since tuesday and was told he looks yellow, he also had a fall at home and has been feeling weak, his knees gave way and was caught by his daughter .last melanotic stool was yester evening per daughter no chest pain no dizziness , no sob , no palpitations patient gets HD T, and tuesday at [facility] Constitutional: Yes: Well Nourished, No Distress, Calm Cardiovascular: Yes: Regular Rate and Rhythm Respiratory: Yes: Regular Gastrointestinal: Yes: Normal Bowel Sounds, Soft Renal/: Yes: Oliguria Musculoskeletal: Yes: Muscle Weakness Extremities: Yes: WNL Edema: No Peripheral Pulses WNL: Yes Neurological: Yes: Alert, Oriented Psychiatric: Yes: Alert, Oriented Labs: CBC, BMP 02/04/19 06:35 02/04/19 06:35 Discharge Summary Reason For Visit: ANEMIA Current Active Problems CAD (coronary artery disease) (Acute) GI bleeding (Acute) H/O aortic valve replacement with tissue graft (Acute) History of aortic valve replacement with bioprosthetic valve (Acute) Hyperkalemia (Acute) Pre-operative cardiovascular examination (Acute) Hospital Course: Laboratory Last Values WBC 4.0 K/mm3 (4.0-10.0) 02/04/19 06:35 RBC 2.86 M/mm3 (4.00-5.60) L 02/04/19 06:35 Hgb 9.6 GM/dL (11.7-16.9) L 02/04/19 06:35 Hct 27.1 % (35.4-49) L 02/04/19 06:35 MCV 94.8 fl (80-96) 02/04/19 06:35 MCH 33.4 pg (25.7-33.7) 02/04/19 06:35 MCHC 35.3 g/dl (32.0-35.9) 02/04/19 06:35 RDW 15.4 % (11.9-15.9) 02/04/19 06:35 Plt Count 95 K/MM3 (134-434) L 02/04/19 06:35 MPV 8.4 fl (7.5-11.1) 02/04/19 06:35 Absolute Neuts (auto) 2.8 K/mm3 (1.5-8.0) 02/04/19 06:35 Neutrophils % 70.3 % (42.8-82.8) 02/04/19 06:35 Lymphocytes % 17.8 % (8-40) 02/04/19 06:35 Monocytes % 8.3 % (3.8-10.2) 02/04/19 06:35 Eosinophils % 2.6 % (0-4.5) 02/04/19 06:35 Basophils % 1.0 % (0-2.0) 02/04/19 06:35 Nucleated RBC % 0 % (0-0) 02/04/19 06:35 Sodium 143 mmol/L (136-145) 02/04/19 06:35 Potassium 3.6 mmol/L (3.5-5.1) 02/04/19 06:35 Chloride 105 mmol/L (98-107) 02/04/19 06:35 Carbon Dioxide 34 mmol/L (21-32) H 02/04/19 06:35 Anion Gap 5 MMOL/L (8-16) L 02/04/19 06:35 BUN 20.1 mg/dL (7-18) H 02/04/19 06:35 Creatinine 4.3 mg/dL (0.55-1.3) H 02/04/19 06:35 Est GFR (CKD-EPI)AfAm 15.19 02/04/19 06:35 Est GFR (CKD-EPI)NonAf 13.11 02/04/19 06:35 Random Glucose 89 mg/dL (74-106) 02/04/19 06:35 Calcium 9.6 mg/dL (8.5-10.1) 02/04/19 06:35 Phosphorus 3.2 mg/dL (2.5-4.9) 02/02/19 06:50 Magnesium 1.9 mg/dL (1.8-2.4) 02/02/19 06:50 Iron 52 ug/dL (50-175) 02/01/19 14:15 TIBC 221 ug/dL (250-450) L 02/01/19 14:15 Iron Saturation 23 % (17.5-39) 02/01/19 14:15 Unsaturated IBC 169 ug/dL (200-275) L 02/01/19 14:15 Total Bilirubin 0.5 mg/dL (0.2-1) 02/04/19 06:35 AST 10 U/L (15-37) L 02/04/19 06:35 ALT 16 U/L (13-61) 02/04/19 06:35 Alkaline Phosphatase 67 U/L (45-117) 02/04/19 06:35 Creatine Kinase 24 U/L (26-308) L 02/02/19 06:50 Troponin I < 0.02 ng/ml (0.00-0.05) 02/02/19 06:50 Total Protein 5.0 g/dl (6.4-8.2) L 02/04/19 06:35 Albumin 3.0 g/dl (3.4-5.0) L 02/04/19 06:35 Hep Bs Antigen Negative (Negative) 02/01/19 14:10 Hep C Ab Diagnostic 0.1 s/co ratio (0.0-0.9) 02/01/19 14:10 Blood Type O POSITIVE 02/01/19 08:25 Antibody Screen Negative 02/01/19 08:25 Crossmatch See Detail 02/01/19 08:25 Vital Signs Temp 98.3 F 02/04/19 08:05 Pulse 80 02/04/19 08:05 Resp 18 02/04/19 08:05 BP 128/58 L 02/04/19 08:05 Pulse Ox 96 02/04/19 09:00 Intake & Output 02/03/19 02/03/19 02/04/19 11:59 23:59 11:59 Intake Total 70 320 Balance 70 320 Weight 65.093 kg Intake: IV 70 80 Protonix in NS10ml/hr 70 80 Oral 240 Other: Voiding Method Diaper Diaper Diaper # Unmeasured Voids Void 1 1 Bowel Movement No No Condition: Stable - Instructions Referrals: Marc You MD [Staff Physician] - Disposition: HOME - Home Medications Comprehensive Discharge Medication List: Ambulatory Orders Escitalopram Oxalate [Lexapro -] 10 mg PO DAILY 02/06/16 Finasteride [Proscar -] 5 mg PO DAILY 02/02/17 Linaclotide [Linzess] 72 mcg PO DAILY 07/06/17 Vitamin B Complex 1 each PO DAILY 07/06/17 Cyanocobalamin [Vitamin B12 -] 500 mcg PO DAILY 01/31/18 Sevelamer HCl [Renagel] 800 mg PO BID 02/02/18 Aspirin [Aspirin EC] 81 mg PO DAILY 12/15/18 Cholecalciferol (Vitamin D3) [Vitamin D3 -] 1,000 unit PO DAILY 12/15/18 Diazepam [Valium] 2 mg PO HS 12/15/18 Divalproex [Depakote -] 250 mg PO DAILY 12/15/18 Docusate Sodium [Colace -] 100 mg PO BID 12/15/18 Nifedipine [Procardia Xl] 60 mg PO ASDIR 12/15/18 Pantoprazole Sodium [Protonix -] 40 mg PO DAILY 12/15/18 Pramipexole Di-HCl [Mirapex] 0.25 mg PO DAILY 12/15/18 Pantoprazole Sodium [Protonix -] 40 mg PO BID #60 tablet.ec 02/04/19
[2019-02-04 12:34] VITALS: BP 143/58; PULSE 60; TEMP 98.2
== END 2019-02-04 15:40 | disposition home or self-care (01) | DRG 377 ==
LOC: JLAB 06:35 → JASU-ENDO 06:35 → EDSTATUS 07:23 → JSAMEDAYSX 11:40 → J4S 14:17
PROVIDERS: ADMIT Student in an Organized Health Care Education/Training Program; ATTEND Student in an Organized Health Care Education/Training Program
PROC: 0W3P8ZZ Control Bleeding in Gastrointestinal Tract, Via Natural or Artificial Opening Endoscopic (ICD-10-PCS; principal; 2019-02-01)
PROC: 5A1D70Z Performance of Urinary Filtration, Intermittent, Less than 6 Hours Per Day (ICD-10-PCS; 2019-02-01)
PROC: 30233N1 Transfusion of Nonautologous Red Blood Cells into Peripheral Vein, Percutaneous Approach (ICD-10-PCS; 2019-02-01)
PROC: 5A1D70Z Performance of Urinary Filtration, Intermittent, Less than 6 Hours Per Day (ICD-10-PCS; 2019-02-03)
DX: K31.82 Dieulafoy lesion (hemorrhagic) of stomach and duodenum (principal); N18.6 End stage renal disease; K92.2 Gastrointestinal hemorrhage, unspecified; I12.0 Hypertensive chronic kidney disease with stage 5 chronic kidney disease or end stage renal disease; G81.94 Hemiplegia, unspecified affecting left nondominant side; E87.5 Hyperkalemia; D69.6 Thrombocytopenia, unspecified; E78.5 Hyperlipidemia, unspecified; R53.1 Weakness; G20 Parkinson's disease; D64.9 Anemia, unspecified; R00.1 Bradycardia, unspecified; I25.119 Atherosclerotic heart disease of native coronary artery with unspecified angina pectoris; R34 Anuria and oliguria; Z99.2 Dependence on renal dialysis; Z95.2 Presence of prosthetic heart valve
CPT/HCPCS: 36415; 36430; 36511; 80048; 80053; 82550; 83540; 83550; 83735; 84100; 84132; 84484; 85025; 85027; 86803; 86850; 86900; 86901; 86922; 87340; 93005; 93010; 94640; 97116-GP; 97161-GP; J0885; P9038; P9058